=== PATIENT | male | born 1960 | race Caucasian/White ===

== ENCOUNTER 2022-10-06 17:37 | Inpatient (IN) | payer OTHER ==
--- NOTE | 2022-10-06 18:13 | ED ---
General Adult HPI - General Chief complaint: Weakness Stated complaint: cancer patient-body & headaches, nausea Time Seen by Provider: 10/06/22 17:55 Source: patient, RN notes reviewed, old records reviewed Mode of arrival: ambulatory Limitations: no limitations - History of Present Illness Initial comments: This is a 62-year-old male presents emergency Department complaining of feeling achy all over and feels as though is a little hot. Patient states she was recently diagnosed with lymphoma and had his first chemo treatment on Tuesday and another one on Tuesday. Patient denies any cough patient denies any abdominal pain patient denies nausea vomiting diarrhea. Patient states he did not get a COVID shot. Patient denies a headache patient denies any numbness or weakness. Patient denies lightheadedness or dizziness. - Related Data Allergies Allergy/AdvReac Type Severity Reaction Status Date / Time No Known Allergies Allergy Verified 10/06/22 17:53 Review of Systems ROS Statement: Those systems with pertinent positive or pertinent negative responses have been documented in the HPI. ROS Other: All systems not noted in ROS Statement are negative. Past Medical History Additional Past Medical History / Comment(s): WM lymphoma History of Any Multi-Drug Resistant Organisms: None Reported Past Surgical History: Appendectomy Past Psychological History: No Psychological Hx Reported Smoking Status: Light tobacco smoker Past Alcohol Use History: None Reported Past Drug Use History: Marijuana General Exam - General Exam Comments Initial Comments: GENERAL: Patient is well-developed and well-nourished. Patient is nontoxic and well- hydrated and is in mild distress. I took the patient's temperature and he had 101.9 ENT: Neck is soft and supple. No significant lymphadenopathy is noted. Oropharynx is clear. Moist mucous membranes. Neck has full range of motion without eliciting any pain. EYES: The sclera were anicteric and conjunctiva were pink and moist. Extraocular movements were intact and pupils were equal round and reactive to light. Eyelids were unremarkable. PULMONARY: Unlabored respirations. Good breath sounds bilaterally. No audible rales rhonchi or wheezing was noted. CARDIOVASCULAR: There is a regular rate and rhythm without any murmurs gallops or rubs. ABDOMEN: Soft and nontender with normal bowel sounds. No palpable organomegaly was noted. There is no palpable pulsatile mass. SKIN: Skin is clear with no lesions or rashes and otherwise unremarkable. NEUROLOGIC: Patient is alert and oriented x3. Cranial nerves II through XII are grossly intact. Motor and sensory are also intact. Normal speech, volume and content. Symmetrical smile. MUSCULOSKELETAL: Normal extremities with adequate strength and full range of motion. LYMPHATICS: No significant lymphadenopathy is noted PSYCHIATRIC: Normal psychiatric evaluation. Limitations: no limitations Course Vital Signs 10/06/22 10/06/22 17:49 19:51 Temperature 98.7 F Pulse Rate 127 H 110 H Respiratory 18 18 Rate Blood Pressure 157/74 122/78 O2 Sat by Pulse 97 96 Oximetry Medical Decision Making - Medical Decision Making I interpreted the EKG. It shows a sinus tachycardia at [address] interval 144 QRS is 97 Q-T intervals 390 QTC is 357 per patient's EKG shows no ST segment elevation or depression. - Lab Data Result diagrams: 10/06/22 19:00 10/06/22 19:00 Lab Results 10/06/22 10/06/22 10/06/22 Range/Units 18:44 18:44 19:00 WBC 10.3 (3.8-10.6) k/uL RBC 4.00 L (4.30-5.90) m/uL Hgb 10.7 L (13.0-17.5) gm/dL Hct 31.9 L (39.0-53.0) % MCV 79.6 L (80.0-100.0) fL MCH 26.8 (25.0-35.0) pg MCHC 33.7 (31.0-37.0) g/dL RDW 17.3 H (11.5-15.5) % Plt Count 358 (150-450) k/uL MPV 8.1 Neutrophils % (Manual) 76 % Band Neuts % (Manual) 1 % Lymphocytes % (Manual) 6 % Monocytes % (Manual) 13 % Eosinophils % (Manual) 5 % Metamyelocytes % 1 % Myelocytes % 1 % Neutrophils # (Manual) 7.90 H (1.3-7.7) k/uL Lymphocytes # (Manual) 0.62 L (1.0-4.8) k/uL Monocytes # (Manual) 1.34 H (0-1.0) k/uL Eosinophils # (Manual) 0.52 (0-0.7) k/uL Metamyelocytes # (Man) 0.10 H (0) k/uL Myelocytes # (Manual) 0.10 H (0) k/uL Nucleated RBCs 0 (0-0) /100 WBC Manual Slide Review Performed Anisocytosis Slight Microcytosis Slight PT (9.0-12.0) sec INR (<1.2) APTT (22.0-30.0) sec Sodium (137-145) mmol/L Potassium (3.5-5.1) mmol/L Chloride (98-107) mmol/L Carbon Dioxide (22-30) mmol/L Anion Gap mmol/L BUN (9-20) mg/dL Creatinine (0.66-1.25) mg/dL Est GFR (CKD-EPI)AfAm (>60 ml/min/1.73 sqM) Est GFR (CKD-EPI)NonAf (>60 ml/min/1.73 sqM) Glucose (74-99) mg/dL Plasma Lactic Acid Ron (0.7-2.0) mmol/L Calcium (8.4-10.2) mg/dL Total Bilirubin (0.2-1.3) mg/dL AST (17-59) U/L ALT (4-49) U/L Alkaline Phosphatase (38-126) U/L Total Protein (6.3-8.2) g/dL Albumin (3.5-5.0) g/dL Urine Color Urine Appearance (Clear) Urine pH (5.0-8.0) Ur Specific Warren (1.001-1.035) Urine Protein (Negative) Urine Glucose (UA) (Negative) Urine Ketones (Negative) Urine Blood (Negative) Urine Nitrite (Negative) Urine Bilirubin (Negative) Urine Urobilinogen (<2.0) mg/dL Ur Leukocyte Esterase (Negative) Urine RBC (0-5) /hpf Urine WBC (0-5) /hpf Ur Squamous Epith Cells (0-4) /hpf Urine Mucus (None) /hpf Coronavirus (PCR) Not Detected (Not Detectd) Influenza Type A RNA Not Detected (Not Detectd) Influenza Type B (PCR) Not Detected (Not Detectd) 10/06/22 10/06/22 10/06/22 Range/Units 19:00 19:00 19:00 WBC (3.8-10.6) k/uL RBC (4.30-5.90) m/uL Hgb (13.0-17.5) gm/dL Hct (39.0-53.0) % MCV (80.0-100.0) fL MCH (25.0-35.0) pg MCHC (31.0-37.0) g/dL RDW (11.5-15.5) % Plt Count (150-450) k/uL MPV Neutrophils % (Manual) % Band Neuts % (Manual) % Lymphocytes % (Manual) % Monocytes % (Manual) % Eosinophils % (Manual) % Metamyelocytes % % Myelocytes % % Neutrophils # (Manual) (1.3-7.7) k/uL Lymphocytes # (Manual) (1.0-4.8) k/uL Monocytes # (Manual) (0-1.0) k/uL Eosinophils # (Manual) (0-0.7) k/uL Metamyelocytes # (Man) (0) k/uL Myelocytes # (Manual) (0) k/uL Nucleated RBCs (0-0) /100 WBC Manual Slide Review Anisocytosis Microcytosis PT 11.7 (9.0-12.0) sec INR 1.1 (<1.2) APTT 30.0 (22.0-30.0) sec Sodium 116 L* (137-145) mmol/L Potassium 6.4 H* (3.5-5.1) mmol/L Chloride 83 L (98-107) mmol/L Carbon Dioxide 23 (22-30) mmol/L Anion Gap 10 mmol/L BUN 13 (9-20) mg/dL Creatinine 0.67 (0.66-1.25) mg/dL Est GFR (CKD-EPI)AfAm >90 (>60 ml/min/1.73 sqM) Est GFR (CKD-EPI)NonAf >90 (>60 ml/min/1.73 sqM) Glucose 178 H (74-99) mg/dL Plasma Lactic Acid Ron 2.2 H* (0.7-2.0) mmol/L Calcium 8.9 (8.4-10.2) mg/dL Total Bilirubin 0.8 (0.2-1.3) mg/dL AST 33 (17-59) U/L ALT 16 (4-49) U/L Alkaline Phosphatase 93 (38-126) U/L Total Protein 9.0 H (6.3-8.2) g/dL Albumin 4.0 (3.5-5.0) g/dL Urine Color Urine Appearance (Clear) Urine pH (5.0-8.0) Ur Specific Warren (1.001-1.035) Urine Protein (Negative) Urine Glucose (UA) (Negative) Urine Ketones (Negative) Urine Blood (Negative) Urine Nitrite (Negative) Urine Bilirubin (Negative) Urine Urobilinogen (<2.0) mg/dL Ur Leukocyte Esterase (Negative) Urine RBC (0-5) /hpf Urine WBC (0-5) /hpf Ur Squamous Epith Cells (0-4) /hpf Urine Mucus (None) /hpf Coronavirus (PCR) (Not Detectd) Influenza Type A RNA (Not Detectd) Influenza Type B (PCR) (Not Detectd) 10/06/22 Range/Units 19:28 WBC (3.8-10.6) k/uL RBC (4.30-5.90) m/uL Hgb (13.0-17.5) gm/dL Hct (39.0-53.0) % MCV (80.0-100.0) fL MCH (25.0-35.0) pg MCHC (31.0-37.0) g/dL RDW (11.5-15.5) % Plt Count (150-450) k/uL MPV Neutrophils % (Manual) % Band Neuts % (Manual) % Lymphocytes % (Manual) % Monocytes % (Manual) % Eosinophils % (Manual) % Metamyelocytes % % Myelocytes % % Neutrophils # (Manual) (1.3-7.7) k/uL Lymphocytes # (Manual) (1.0-4.8) k/uL Monocytes # (Manual) (0-1.0) k/uL Eosinophils # (Manual) (0-0.7) k/uL Metamyelocytes # (Man) (0) k/uL Myelocytes # (Manual) (0) k/uL Nucleated RBCs (0-0) /100 WBC Manual Slide Review Anisocytosis Microcytosis PT (9.0-12.0) sec INR (<1.2) APTT (22.0-30.0) sec Sodium (137-145) mmol/L Potassium (3.5-5.1) mmol/L Chloride (98-107) mmol/L Carbon Dioxide (22-30) mmol/L Anion Gap mmol/L BUN (9-20) mg/dL Creatinine (0.66-1.25) mg/dL Est GFR (CKD-EPI)AfAm (>60 ml/min/1.73 sqM) Est GFR (CKD-EPI)NonAf (>60 ml/min/1.73 sqM) Glucose (74-99) mg/dL Plasma Lactic Acid Ron (0.7-2.0) mmol/L Calcium (8.4-10.2) mg/dL Total Bilirubin (0.2-1.3) mg/dL AST (17-59) U/L ALT (4-49) U/L Alkaline Phosphatase (38-126) U/L Total Protein (6.3-8.2) g/dL Albumin (3.5-5.0) g/dL Urine Color Light Yellow Urine Appearance Clear (Clear) Urine pH 7.5 (5.0-8.0) Ur Specific Warren 1.017 (1.001-1.035) Urine Protein 1+ H (Negative) Urine Glucose (UA) Negative (Negative) Urine Ketones Negative (Negative) Urine Blood Negative (Negative) Urine Nitrite Negative (Negative) Urine Bilirubin Negative (Negative) Urine Urobilinogen <2.0 (<2.0) mg/dL Ur Leukocyte Esterase Negative (Negative) Urine RBC 2 (0-5) /hpf Urine WBC 1 (0-5) /hpf Ur Squamous Epith Cells <1 (0-4) /hpf Urine Mucus Rare H (None) /hpf Coronavirus (PCR) (Not Detectd) Influenza Type A RNA (Not Detectd) Influenza Type B (PCR) (Not Detectd) Disposition Clinical Impression: Hypokalemia, Hyperkalemia, Lactic acidosis, Fever, unknown origin Disposition: ADMITTED IP TO THIS HOSP Referrals: Rodo Larson MD [Primary Care Provider] - 1-2 days Time of Disposition: 20:39
[2022-10-06] MEDS ORDERED: ACETAMINOPHEN TAB 325 MG TAB PO STA (18:24)
[2022-10-06] MEDS ORDERED: IBUPROFEN 600 MG TAB PO STA (18:24)
[2022-10-06] MEDS ORDERED: ONDANSETRON 4 MG/2 ML VIAL IVP STA (18:25)
[2022-10-06] MEDS: SODIUM CHLORIDE 0.9% 500 ML 500 ML IV SCH ×2 (18:50→20:09)
--- NOTE | 2022-10-06 19:23 | XR ---
EXAMINATION TYPE: XR chest 2V DATE OF EXAM: 10/06/2022 COMPARISON: NONE HISTORY: Fever TECHNIQUE: 2 view FINDINGS: Heart is normal. Lungs are clear. Diaphragm is normal. Bony thorax is intact. IMPRESSION: Normal chest.
[2022-10-06 19:28] LABS: Anisocytosis Slight; HCT 31.9 % (39.0-53.0); HGB 10.7 gm/dL (13.0-17.5); MCH 26.8 pg (25.0-35.0); MCHC 33.7 g/dL (31.0-37.0); MCV 79.6 fL (80.0-100.0); Mean Platelet Volume 8.1; Microcytosis Slight; Platelet Count 358 k/uL (150-450); RDW 17.3 % (11.5-15.5); WBC 10.3 k/uL (3.8-10.6)
[2022-10-06 19:35] LABS: INR 1.1 (<1.2); Prothrombin Time 11.7 sec (9.0-12.0)
[2022-10-06 19:45] LABS: ALT 16 U/L (4-49); AST 33 U/L (17-59); African American GFR (CKD) >90 (>60 ml/min/1.73 sqM); Alkaline Phosphatase 93 U/L (38-126); Anion Gap 10 mmol/L; Blood Urea Nitrogen 13 mg/dL (9-20); Calcium 8.9 mg/dL (8.4-10.2); Carbon Dioxide 23 mmol/L (22-30); Chloride 83 mmol/L (98-107); Glucose 178 mg/dL (74-99); Non-African American GFR(CKD) >90 (>60 ml/min/1.73 sqM); Total Bilirubin 0.8 mg/dL (0.2-1.3)
[2022-10-06 20:03] LABS: Potassium 6.4 mmol/L (3.5-5.1); Sodium 116 mmol/L (137-145)
[2022-10-06 20:08] LABS: Band Neutrophils % 1 %; Eosinophils # (M) 0.52 k/uL (0-0.7); Lymphocytes # (M) 0.62 k/uL (1.0-4.8); Metamyelocytes % 1 %; Monocytes # (M) 1.34 k/uL (0-1.0); Myelocytes % 1 %; Neutrophils % (M) 76 %; Nucleated Red Blood Cells 0 /100 WBC (0-0); Total Cells Counted 200
[2022-10-06] MEDS ORDERED: SODIUM CHLORIDE 0.9% 500 ML 500 ML IV ONE (20:15)
[2022-10-06] MEDS ORDERED: CALCIUM CHLORIDE 100 MG/ML 10 ML SYRINGE IVP STA (20:17)
[2022-10-06] MEDS ORDERED: INSULIN REGULAR 100 UNIT/ML VIAL (IV) IV ONE (20:18)
[2022-10-06] MEDS ORDERED: SODIUM BICARB 8.4% 50 ML SYR (1 MEQ/ML) IV STA (20:18)
[2022-10-06] MEDS ORDERED: DEXTROSE 50% SYRINGE 50 ML IVP STA (20:18)
[2022-10-06 20:28] LABS: Appearance,Urine Clear (Clear); Bilirubin,Urine Negative (Negative); Blood,Urine Negative (Negative); Color,Urine Light Yellow; Glucose,Urine (UA) Negative (Negative); Ketones,Urine Negative (Negative); Leukocyte Esterase,Urine Negative (Negative); Mucus,Urine Rare /hpf; Nitrite,Urine Negative (Negative); PH, Urine 7.5 (5.0-8.0); Protein,Urine 1+ (Negative); RBC,Urine 2 /hpf (0-5); Specific Gravity,Urine 1.017 (1.001-1.035); Squamous Epithelial Cell,Urine <1 /hpf (0-4); Urobilinogen,Urine <2.0 mg/dL (<2.0); WBC,Urine 1 /hpf (0-5)
[2022-10-06] MEDS ORDERED: CEFEPIME 2 GM in SODIUM CHLORIDE 0.9% 100 ML IVPB STA (20:35)
[2022-10-06] MEDS ORDERED: SODIUM CHLORIDE 0.9% 1,000 ML IV ONE (21:05)
[2022-10-06] MEDS ORDERED: SODIUM POLYSTYRENE SULFONATE 15 GM/60 ML BOTTLE PO STA (21:06)
[2022-10-06 21:31] LABS: African American GFR (CKD) >90 (>60 ml/min/1.73 sqM); Anion Gap 8 mmol/L; Blood Urea Nitrogen 13 mg/dL (9-20); Carbon Dioxide 21 mmol/L (22-30); Chloride 89 mmol/L (98-107); Glucose 141 mg/dL (74-99); Non-African American GFR(CKD) >90 (>60 ml/min/1.73 sqM); Potassium 5.2 mmol/L (3.5-5.1)
[2022-10-06 21:36] LABS: Sodium 118 mmol/L (137-145)
[2022-10-07] MEDS ORDERED: NICOTINE 21MG/24HR PATCH TRANSDERM STA (00:38)
[2022-10-07] MEDS: ACETAMINOPHEN TAB 325 MG TAB PO PRN ×3 (03:39→21:01)
[2022-10-07 05:55] LABS: Glucose,Whole Blood 120 mg/dL (70-110)
[2022-10-07 07:39] LABS: Anisocytosis Slight; HCT 30.4 % (39.0-53.0); Hypochromasia Slight; MCH 26.7 pg (25.0-35.0); MCV 80.9 fL (80.0-100.0); Mean Platelet Volume 8.2; Microcytosis Slight; Platelet Count 339 k/uL (150-450); Poikilocytosis Slight; RBC 3.76 m/uL (4.30-5.90); RDW 17.6 % (11.5-15.5); WBC 9.1 k/uL (3.8-10.6)
[2022-10-07 07:47] LABS: African American GFR (CKD) >90 (>60 ml/min/1.73 sqM); Anion Gap 6 mmol/L; Blood Urea Nitrogen 12 mg/dL (9-20); Carbon Dioxide 24 mmol/L (22-30); Chloride 94 mmol/L (98-107); Glucose 113 mg/dL (74-99); Non-African American GFR(CKD) >90 (>60 ml/min/1.73 sqM); Potassium 4.6 mmol/L (3.5-5.1); Sodium 124 mmol/L (137-145)
[2022-10-07 07:49] LABS: African American GFR (CKD) >90 (>60 ml/min/1.73 sqM); Anion Gap 6 mmol/L; Blood Urea Nitrogen 13 mg/dL (9-20); Calcium 8.8 mg/dL (8.4-10.2); Carbon Dioxide 24 mmol/L (22-30); Chloride 94 mmol/L (98-107); Glucose 114 mg/dL (74-99); Non-African American GFR(CKD) >90 (>60 ml/min/1.73 sqM); Potassium 4.6 mmol/L (3.5-5.1); Sodium 124 mmol/L (137-145)
[2022-10-07] MEDS ORDERED: SENNOSIDES 8.6 MG TAB PO PRN (08:07)
[2022-10-07] MEDS ORDERED: ONDANSETRON ODT 4 MG TAB PO PRN (08:07)
[2022-10-07] MEDS ORDERED: ALPRAZolam 0.25 MG TAB PO PRN (08:07)
[2022-10-07] MEDS ORDERED: IBUPROFEN 400 MG TAB PO PRN (08:08)
--- NOTE | 2022-10-07 08:22 | P.HPIM ---
History of Present Illness H&P Date: 10/07/22 Chief Complaint: fever There is a 62-year-old male who presented to the ER with complaints of fever for the last 3 days. He has a history of lymphoma and was recently hospitalized for hyponatremia at another facility. Patient reports extreme fatigue over the last few days. Last chemo treatment was on 09/29. He denies any cough or congestion. Food intake has been moderate, drinking 2 bottles of body armor and 2 bottles of water a day. Sodium on admission was 118, today is 124. Calcium on admission was 5.2 today is 4.6. Patient is alert and oriented sitting up in bed this morning eating breakfast. Review of Systems Constitutional: Reports fatigue, Reports fever Ears, nose, mouth and throat: Reports headache Cardiovascular: Denies chest pain, Denies palpitations Respiratory: Denies congestion, Denies cough, Denies dyspnea Gastrointestinal: Denies abdominal pain, Denies change in bowel habits Neurological: Reports headaches, Denies change in mentation Past Medical History Additional Past Medical History / Comment(s): WM lymphoma, shingles History of Any Multi-Drug Resistant Organisms: None Reported Past Surgical History: Appendectomy Past Anesthesia/Blood Transfusion Reactions: No Reported Reaction Past Psychological History: No Psychological Hx Reported Smoking Status: Light tobacco smoker Past Alcohol Use History: None Reported Past Drug Use History: Marijuana - Past Family History Father Family Medical History: Cancer, Prostate Disorder Additional Family Medical History / Comment(s): prostate cancer Mother Family Medical History: Cancer Additional Family Medical History / Comment(s): lung cancer to the brain Brother(s) Family Medical History: Cancer Medications and Allergies Home Medications Medication Instructions Recorded Confirmed Type ALPRAZolam [Xanax] 0.25 mg PO BID PRN 10/06/22 10/06/22 History Acetaminophen [Tylenol Extra 500 - 1,000 mg PO Q6H PRN 10/06/22 10/06/22 History Strength] Ascorbic Acid [Vitamin C] 500 mg PO DAILY 10/06/22 10/06/22 History Cholecalciferol [Vitamin D3 (25 25 mcg PO DAILY 10/06/22 10/06/22 History Mcg = 1000 Iu)] Ferrous Sulfate [Feosol] 325 mg PO DAILY 10/06/22 10/06/22 History Mirtazapine [Remeron] 30 mg PO HS 10/06/22 10/06/22 History Nicotine 21Mg/24Hr Patch [Habitrol] 1 patch TRANSDERM DAILY PRN 10/06/22 10/06/22 History Ondansetron Odt [Zofran Odt] 4 mg PO Q4H PRN 10/06/22 10/06/22 History Pantoprazole Sodium [Protonix] 40 mg PO DAILY 10/06/22 10/06/22 History Sennosides [Senokot] 8.6 mg PO HS PRN 10/06/22 10/06/22 History Zinc Gluconate [Zinc] 50 mg PO DAILY 10/06/22 10/06/22 History allopurinoL [Zyloprim] 200 mg PO DAILY 10/06/22 10/06/22 History Allergies Allergy/AdvReac Type Severity Reaction Status Date / Time No Known Allergies Allergy Verified 10/06/22 17:53 Physical Exam Vitals: Vital Signs Temp Pulse Pulse Resp BP BP Pulse Ox 10/07/22 07:58 96 10/07/22 03:44 97.8 F 89 16 129/69 98 10/07/22 00:00 98.2 F 88 18 106/64 97 10/06/22 22:05 104/52 10/06/22 21:58 98.0 F 102 H 18 99 10/06/22 19:51 110 H 18 122/78 96 10/06/22 17:49 98.7 F 127 H 18 157/74 97 Intake and Output 10/06/22 10/07/22 10/07/22 22:59 06:59 14:59 Intake Total 240 Balance 240 Intake: Oral 240 Other: Voiding Method Toilet # Voids 1 Weight 64.864 kg 64.864 kg - Constitutional General appearance: cooperative, no no acute distress - EENT Eyes: EOMI, PERRLA - Neck Neck: normal ROM, no rigidity - Respiratory Respiratory: bilateral: CTA - Cardiovascular Rhythm: regular Heart sounds: normal: S1, S2 - Gastrointestinal General gastrointestinal: normal bowel sounds, soft - Integumentary Integumentary: normal, normal turgor - Musculoskeletal Musculoskeletal: gait normal - Psychiatric Psychiatric: A&O x's 3, appropriate affect, intact judgment & insight Results CBC & Chem 7: 10/07/22 06:49 10/07/22 06:49 Labs: Abnormal Lab Results - Last 24 Hours (Table) 10/06/22 10/06/22 10/06/22 Range/Units 19:00 19:00 19:00 RBC 4.00 L (4.30-5.90) m/uL Hgb 10.7 L (13.0-17.5) gm/dL Hct 31.9 L (39.0-53.0) % MCV 79.6 L (80.0-100.0) fL RDW 17.3 H (11.5-15.5) % Neutrophils # (Manual) 7.90 H (1.3-7.7) k/uL Lymphocytes # (Manual) 0.62 L (1.0-4.8) k/uL Monocytes # (Manual) 1.34 H (0-1.0) k/uL Metamyelocytes # (Man) 0.10 H (0) k/uL Myelocytes # (Manual) 0.10 H (0) k/uL Sodium 116 L* (137-145) mmol/L Potassium 6.4 H* (3.5-5.1) mmol/L Chloride 83 L (98-107) mmol/L Carbon Dioxide (22-30) mmol/L Glucose 178 H (74-99) mg/dL POC Glucose (mg/dL) (70-110) mg/dL Plasma Lactic Acid Ron 2.2 H* (0.7-2.0) mmol/L Calcium (8.4-10.2) mg/dL Total Protein 9.0 H (6.3-8.2) g/dL Urine Protein (Negative) Urine Mucus (None) /hpf 10/06/22 10/06/22 10/07/22 Range/Units 19:28 20:46 05:53 RBC (4.30-5.90) m/uL Hgb (13.0-17.5) gm/dL Hct (39.0-53.0) % MCV (80.0-100.0) fL RDW (11.5-15.5) % Neutrophils # (Manual) (1.3-7.7) k/uL Lymphocytes # (Manual) (1.0-4.8) k/uL Monocytes # (Manual) (0-1.0) k/uL Metamyelocytes # (Man) (0) k/uL Myelocytes # (Manual) (0) k/uL Sodium 118 L* (137-145) mmol/L Potassium 5.2 H (3.5-5.1) mmol/L Chloride 89 L (98-107) mmol/L Carbon Dioxide 21 L (22-30) mmol/L Glucose 141 H (74-99) mg/dL POC Glucose (mg/dL) 120 H (70-110) mg/dL Plasma Lactic Acid Ron (0.7-2.0) mmol/L Calcium 8.0 L (8.4-10.2) mg/dL Total Protein (6.3-8.2) g/dL Urine Protein 1+ H (Negative) Urine Mucus Rare H (None) /hpf 10/07/22 10/07/22 10/07/22 Range/Units 06:49 06:49 06:49 RBC 3.76 L (4.30-5.90) m/uL Hgb 10.0 L (13.0-17.5) gm/dL Hct 30.4 L (39.0-53.0) % MCV (80.0-100.0) fL RDW 17.6 H (11.5-15.5) % Neutrophils # (Manual) (1.3-7.7) k/uL Lymphocytes # (Manual) (1.0-4.8) k/uL Monocytes # (Manual) (0-1.0) k/uL Metamyelocytes # (Man) (0) k/uL Myelocytes # (Manual) (0) k/uL Sodium 124 L 124 L (137-145) mmol/L Potassium (3.5-5.1) mmol/L Chloride 94 L 94 L (98-107) mmol/L Carbon Dioxide (22-30) mmol/L Glucose 113 H 114 H (74-99) mg/dL POC Glucose (mg/dL) (70-110) mg/dL Plasma Lactic Acid Ron (0.7-2.0) mmol/L Calcium (8.4-10.2) mg/dL Total Protein (6.3-8.2) g/dL Urine Protein (Negative) Urine Mucus (None) /hpf Thrombosis Risk Factor Assmnt - Choose All That Apply Each Factor Represents 1 point: Age 41-60 years Other Risk Factors: No Other congenital or acquired thrombophilia - If yes, enter type in comment: No Thrombosis Risk Factor Assessment Total Risk Factor Score: 1 Thrombosis Risk Factor Assessment Level: Low Risk Assessment and Plan (1) Hyponatremia Current Visit: Yes Status: Acute Code(s): E87.1 - HYPO-OSMOLALITY AND HYPONATREMIA SNOMED Code(s): 90647512 (2) Fever, unknown origin Current Visit: Yes Status: Acute Code(s): R50.9 - FEVER, UNSPECIFIED SNOMED Code(s): 0783626 (3) Lymphoma Current Visit: Yes Status: Acute Code(s): C85.90 - NON-HODGKIN LYMPHOMA, UNSPECIFIED, UNSPECIFIED SITE SNOMED Code(s): 252790838 (4) Fatigue Current Visit: Yes Status: Acute Code(s): R53.83 - OTHER FATIGUE SNOMED Code(s): 84596976 (5) Hyperkalemia Current Visit: Yes Status: Acute Code(s): E87.5 - HYPERKALEMIA SNOMED Code(s): 56453571 Plan: Consults oncology and nephrology. Will order CMP for tomorrow. Home medications reconciled. Will order Motrin as needed for fever. Tramadol added for pain. Continue to monitor closely. Patient seen and evaluated by nurse practitioner, physician in agreement with plan
[2022-10-07] MEDS: ZINC SULFATE 220 MG CAP PO SCH (08:33)
[2022-10-07] MEDS: FERROUS SULFATE 325 MG TAB PO SCH (08:33)
[2022-10-07] MEDS: ASCORBIC ACID 500 MG TAB PO SCH (08:33)
[2022-10-07] MEDS: CHOLECALCIFEROL 25 MCG (1000 IU) TABLET PO SCH (08:34)
[2022-10-07] MEDS: allopurinoL 100 MG TAB PO SCH (08:34)
[2022-10-07] MEDS: traMADol 50 MG TAB PO SCH ×4 (08:34→23:16)
[2022-10-07] MEDS: CEFEPIME 2 GM in SODIUM CHLORIDE 0.9% 100 ML IVPB SCH ×3 (08:35→23:12)
[2022-10-07] MEDS ORDERED: DEXTROSE 5% IN WATER 1,000 ML IV ONE (08:51)
--- NOTE | 2022-10-07 09:00 | P.NPCON ---
History of Present Illness - Reason for Consult hyponatremia - History of Present Illness Reason for consultation: Hyponatremia and hyperkalemia History of present illness: Patient is a 62-year-old male seen in renal consultation for hyponatremia. Patient's sodium level on admission 10/16/2022 at 7 PM was 116. It is up to 124 as of this morning. Patient received 1 L bolus of normal saline and is curr ently receiving normal saline at 75 mL an hour. Patient states he was recently diagnosed with non-Hodgkin's lymphoma and was started on chemotherapy last week. He underwent chemotherapy Tuesday and Tuesday. Patient states last couple of days as oral intake has decreased but denies any significant vomiting or diarrhea. He denies excessive fluid intake. States he drinks sports drinks. He denies use of nonsteroidals. Patient states his sodium has been low in the past as well and was given sodium chloride tabs to take which she hasn't been taking. He denies use of diuretics. Potassium was also high at 6.4 and is down to 4.6 this morning. Hyperkalemia was medically treated with IV insulin, IV bicarb as well as Kayexalate. Blood sugars are stable. Bicarb level XXIV this morning. TSH normal. Vital signs are stable. General: Awake. No acute distress. HEENT: Head exam is unremarkable. LUNGS: Breath sounds decreased. HEART: Rate and Rhythm are regular. ABDOMEN: Soft, no distention. EXTREMITITES: No edema. Past Medical History Past Medical History: Cancer Additional Past Medical History / Comment(s): WM lymphoma, shingles History of Any Multi-Drug Resistant Organisms: None Reported Past Surgical History: Appendectomy Past Anesthesia/Blood Transfusion Reactions: No Reported Reaction Past Psychological History: No Psychological Hx Reported Smoking Status: Light tobacco smoker Past Alcohol Use History: None Reported Past Drug Use History: Marijuana - Past Family History Father Family Medical History: Cancer, Prostate Disorder Additional Family Medical History / Comment(s): prostate cancer Mother Family Medical History: Cancer Additional Family Medical History / Comment(s): lung cancer to the brain Brother(s) Family Medical History: Cancer Medications and Allergies Home Medications Medication Instructions Recorded Confirmed Type ALPRAZolam [Xanax] 0.25 mg PO BID PRN 10/06/22 10/06/22 History Acetaminophen [Tylenol Extra 500 - 1,000 mg PO Q6H PRN 10/06/22 10/06/22 History Strength] Ascorbic Acid [Vitamin C] 500 mg PO DAILY 10/06/22 10/06/22 History Cholecalciferol [Vitamin D3 (25 25 mcg PO DAILY 10/06/22 10/06/22 History Mcg = 1000 Iu)] Ferrous Sulfate [Feosol] 325 mg PO DAILY 10/06/22 10/06/22 History Mirtazapine [Remeron] 30 mg PO HS 10/06/22 10/06/22 History Nicotine 21Mg/24Hr Patch [Habitrol] 1 patch TRANSDERM DAILY PRN 10/06/22 10/06/22 History Ondansetron Odt [Zofran Odt] 4 mg PO Q4H PRN 10/06/22 10/06/22 History Pantoprazole Sodium [Protonix] 40 mg PO DAILY 10/06/22 10/06/22 History Sennosides [Senokot] 8.6 mg PO HS PRN 10/06/22 10/06/22 History Zinc Gluconate [Zinc] 50 mg PO DAILY 10/06/22 10/06/22 History allopurinoL [Zyloprim] 200 mg PO DAILY 10/06/22 10/06/22 History Allergies Allergy/AdvReac Type Severity Reaction Status Date / Time No Known Allergies Allergy Verified 10/06/22 17:53 Physical Exam Vitals: Vital Signs Temp Pulse Pulse Pulse Resp BP BP 10/07/22 08:30 96.8 F L 111 H 16 121/59 10/07/22 07:58 10/07/22 03:44 97.8 F 89 16 129/69 10/07/22 00:00 98.2 F 88 18 106/64 10/06/22 22:05 104/52 10/06/22 21:58 98.0 F 102 H 18 10/06/22 19:51 110 H 18 122/78 10/06/22 17:49 98.7 F 127 H 18 157/74 Pulse Ox 10/07/22 08:30 98 10/07/22 07:58 96 10/07/22 03:44 98 10/07/22 00:00 97 10/06/22 22:05 10/06/22 21:58 99 10/06/22 19:51 96 10/06/22 17:49 97 Intake and Output 10/06/22 10/07/22 10/07/22 22:59 06:59 14:59 Intake Total 240 Balance 240 Intake: Oral 240 Other: Voiding Method Toilet # Voids 1 Weight 64.864 kg 64.864 kg Results - Lab Results Most recent lab results Calcium 8.8 mg/dL (8.4-10.2) 10/07/22 06:49 Calcium 9.0 mg/dL (8.4-10.2) 10/07/22 06:49 10/07/22 06:49 10/07/22 06:49 Assessment and Plan Plan: Assessment: 1. Hypovolemic hyponatremia with component of poor solute intake and underlying SIADH from malignancy. Sodium level was 116 on admission and is 124 this morning. TSH normal. 2. Hyperkalemia secondary to hyperglycemia and acidosis. Improved with medical management. 3. Non-Hodgkin's lymphoma maintained on chemotherapy outpatient. Plan: Stop normal saline. Start D5W at 75 mL an hour to slow correction of hyponatremia. Repeat sodium level in 2 hours. Check serum and urine osmolality and urine sodium level. Check cortisol level. Encouraged oral intake, especially protein. Thank you for the consultation. I will continue to follow the patient with you during his hospital stay.
[2022-10-07 12:03] LABS: Glucose,Whole Blood 114 mg/dL (70-110)
[2022-10-07] MEDS: PANTOPRAZOLE 40 MG TABLET PO SCH (13:16)
[2022-10-07 16:35] LABS: Glucose,Whole Blood 110 mg/dL (70-110)
[2022-10-07] MEDS ORDERED: PROCHLORPERAZINE 10 MG TAB PO PRN (19:03)
[2022-10-07] MEDS: diphenhydrAMINE 25 MG CAP PO SCH ×2 (19:06→21:01)
[2022-10-07] MEDS: predniSONE 50 MG TAB PO SCH (19:06)
--- NOTE | 2022-10-07 19:13 | P.CONS ---
History of Present Illness - Reason for Consult Consult date: 10/07/22 fever NOS, lymphoma Requesting physician: Oz Paulino - Chief Complaint weakness, fever - History of Present Illness Mister Cisneros is a pleasant male patient of Dr. Wesley, initially seen in consult [facility] 07/27/22. Resented with complaints of pain in the bilateral lower e xtremities, progressive over the last month. Evaluation revealed sodium 122, hemoglobin 8.3 with a low MCV. Exam revealed palpable lymph node in the right supraclavicular area. There was a family history of lymphoma. X-rays of the lumbar spine, hips revealed compression fracture at L5. CT CAP showed a 1.9 cm pretracheal lymph node, as well as multiple enlarged periaortic lymph node measuring up to 3 cm. There is some encasement of the aorta. Multiple bilateral palpable inguinal nodes, up to 1.5 cm were also seen. CT of the soft tissue of the neck showed mediastinal, as well as anterior and posterior triangle cervical adenopathy, with submandibular adenopathy. Excisional biopsy of the right lower cervical lymph node and subsequently discharged. He has had additional admissions as for weakness, low sodium, prolonged insomnia , anxiety, as well as mental status changes. The mental status changes actually resolved with treatment of anxiety and insomnia. 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 Flow cytometry showed similar results. Bone scan, and MRI of the brain were negative. FISH study showed CCN D1/11 q, but no evidence of CCN D1/IGH , IGH/BCL-2, or MART 1 translocations. 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 As this was suspicious for mantle cell lymphoma, but not definitive, given the absence of specific translocations, pathology was sent to [facility] for consultation. He was started on pulse Decadron 40 mg, 4 days on and 4 days off. He had 4 courses of the same. He was seen for his first office visit on 09/09/22. He received his first dose of treatment last week. Patient states that within a few days after treatment he was beginning to experience dizziness. He had a fall 1, his bones hurt for one day and then pain went away. He was forcing himself to eat. He noted a loss of appetite, energy, sleeping a lot. This progressed. 2 days ago he started having nausea, "sick feeling", he didn't take any of his meds. Symptoms persisted and progressed, his face turned red, he became itchy and noted a rash over his body. That's when he decided to come to the emergency department. Reported fever of 101.9 Fahrenheit. No fever today. Patient feels a little bit better on admission. Less dizzy. He is definitely feeling anxious. Review of Systems 10 point ROS is neg except as stated in HPI Past Medical History Past Medical History: Cancer Additional Past Medical History / Comment(s): WM lymphoma, shingles History of Any Multi-Drug Resistant Organisms: None Reported Past Surgical History: Appendectomy Past Anesthesia/Blood Transfusion Reactions: No Reported Reaction Past Psychological History: No Psychological Hx Reported Smoking Status: Light tobacco smoker Past Alcohol Use History: None Reported Past Drug Use History: Marijuana - Past Family History Father Family Medical History: Cancer, Prostate Disorder Additional Family Medical History / Comment(s): prostate cancer Mother Family Medical History: Cancer Additional Family Medical History / Comment(s): lung cancer to the brain Brother(s) Family Medical History: Cancer Medications and Allergies Home Medications Medication Instructions Recorded Confirmed Type ALPRAZolam [Xanax] 0.25 mg PO BID PRN 10/06/22 10/06/22 History Acetaminophen [Tylenol Extra 500 - 1,000 mg PO Q6H PRN 10/06/22 10/06/22 History Strength] Ascorbic Acid [Vitamin C] 500 mg PO DAILY 10/06/22 10/06/22 History Cholecalciferol [Vitamin D3 (25 25 mcg PO DAILY 10/06/22 10/06/22 History Mcg = 1000 Iu)] Ferrous Sulfate [Feosol] 325 mg PO DAILY 10/06/22 10/06/22 History Mirtazapine [Remeron] 30 mg PO HS 10/06/22 10/06/22 History Nicotine 21Mg/24Hr Patch [Habitrol] 1 patch TRANSDERM DAILY PRN 10/06/22 10/06/22 History Ondansetron Odt [Zofran Odt] 4 mg PO Q4H PRN 10/06/22 10/06/22 History Pantoprazole Sodium [Protonix] 40 mg PO DAILY 10/06/22 10/06/22 History Sennosides [Senokot] 8.6 mg PO HS PRN 10/06/22 10/06/22 History Zinc Gluconate [Zinc] 50 mg PO DAILY 10/06/22 10/06/22 History allopurinoL [Zyloprim] 200 mg PO DAILY 10/06/22 10/06/22 History Allergies Allergy/AdvReac Type Severity Reaction Status Date / Time No Known Allergies Allergy Verified 10/06/22 17:53 Physical Exam Vitals: Vital Signs Temp Pulse Pulse Resp BP BP Pulse Ox 10/07/22 07:58 96 10/07/22 03:44 97.8 F 89 16 129/69 98 10/07/22 00:00 98.2 F 88 18 106/64 97 10/06/22 22:05 104/52 10/06/22 21:58 98.0 F 102 H 18 99 10/06/22 19:51 110 H 18 122/78 96 10/06/22 17:49 98.7 F 127 H 18 157/74 97 Intake and Output 10/06/22 10/07/22 10/07/22 22:59 06:59 14:59 Intake Total 240 Balance 240 Intake: Oral 240 Other: Voiding Method Toilet # Voids 1 Weight 64.864 kg 64.864 kg - Constitutional General appearance: average body habitus, cooperative, no acute distress - EENT Eyes: anicteric sclerae, EOMI ENT: hearing grossly normal, normal oropharynx - Neck Neck: lymphadenopathy (Shoddy bilateral supraclavicular adenopathy-nodes are smaller more mobile, softer) - Respiratory Respiratory: bilateral: CTA - Cardiovascular Rhythm: regular Heart sounds: normal: S1, S2 Abnormal Heart Sounds: no systolic murmur, no diastolic murmur, no rub, no S3 Gallop, no S4 Gallop, no click, no other leg Peripheral Edema: bilateral: None - Gastrointestinal General gastrointestinal: no absent bowel sounds, no decreased bowel sounds, no distended, no hepatomegaly, no hyperactive bowel sounds, normal bowel sounds, no organomegaly, no rigid, no scaphoid, soft, no splenomegaly, no tenderness, no umbilical hernia, no ventral hernia - Integumentary Integumentary: rash - Neurologic Neurologic: CNII-XII intact - Musculoskeletal Musculoskeletal: strength equal bilaterally - Psychiatric Psychiatric: A&O x's 3, appropriate affect, intact judgment & insight Results CBC & Chem 7: 10/07/22 06:49 10/07/22 15:11 Labs: Abnormal Lab Results - Last 24 Hours (Table) 10/06/22 10/06/22 10/06/22 Range/Units 19:00 19:00 19:00 RBC 4.00 L (4.30-5.90) m/uL Hgb 10.7 L (13.0-17.5) gm/dL Hct 31.9 L (39.0-53.0) % MCV 79.6 L (80.0-100.0) fL RDW 17.3 H (11.5-15.5) % Neutrophils # (Manual) 7.90 H (1.3-7.7) k/uL Lymphocytes # (Manual) 0.62 L (1.0-4.8) k/uL Monocytes # (Manual) 1.34 H (0-1.0) k/uL Metamyelocytes # (Man) 0.10 H (0) k/uL Myelocytes # (Manual) 0.10 H (0) k/uL Sodium 116 L* (137-145) mmol/L Potassium 6.4 H* (3.5-5.1) mmol/L Chloride 83 L (98-107) mmol/L Carbon Dioxide (22-30) mmol/L Glucose 178 H (74-99) mg/dL POC Glucose (mg/dL) (70-110) mg/dL Plasma Lactic Acid Ron 2.2 H* (0.7-2.0) mmol/L Calcium (8.4-10.2) mg/dL Total Protein 9.0 H (6.3-8.2) g/dL Urine Protein (Negative) Urine Mucus (None) /hpf 10/06/22 10/06/22 10/07/22 Range/Units 19:28 20:46 05:53 RBC (4.30-5.90) m/uL Hgb (13.0-17.5) gm/dL Hct (39.0-53.0) % MCV (80.0-100.0) fL RDW (11.5-15.5) % Neutrophils # (Manual) (1.3-7.7) k/uL Lymphocytes # (Manual) (1.0-4.8) k/uL Monocytes # (Manual) (0-1.0) k/uL Metamyelocytes # (Man) (0) k/uL Myelocytes # (Manual) (0) k/uL Sodium 118 L* (137-145) mmol/L Potassium 5.2 H (3.5-5.1) mmol/L Chloride 89 L (98-107) mmol/L Carbon Dioxide 21 L (22-30) mmol/L Glucose 141 H (74-99) mg/dL POC Glucose (mg/dL) 120 H (70-110) mg/dL Plasma Lactic Acid Ron (0.7-2.0) mmol/L Calcium 8.0 L (8.4-10.2) mg/dL Total Protein (6.3-8.2) g/dL Urine Protein 1+ H (Negative) Urine Mucus Rare H (None) /hpf 10/07/22 10/07/22 10/07/22 Range/Units 06:49 06:49 06:49 RBC 3.76 L (4.30-5.90) m/uL Hgb 10.0 L (13.0-17.5) gm/dL Hct 30.4 L (39.0-53.0) % MCV (80.0-100.0) fL RDW 17.6 H (11.5-15.5) % Neutrophils # (Manual) (1.3-7.7) k/uL Lymphocytes # (Manual) (1.0-4.8) k/uL Monocytes # (Manual) (0-1.0) k/uL Metamyelocytes # (Man) (0) k/uL Myelocytes # (Manual) (0) k/uL Sodium 124 L 124 L (137-145) mmol/L Potassium (3.5-5.1) mmol/L Chloride 94 L 94 L (98-107) mmol/L Carbon Dioxide (22-30) mmol/L Glucose 113 H 114 H (74-99) mg/dL POC Glucose (mg/dL) (70-110) mg/dL Plasma Lactic Acid Ron (0.7-2.0) mmol/L Calcium (8.4-10.2) mg/dL Total Protein (6.3-8.2) g/dL Urine Protein (Negative) Urine Mucus (None) /hpf Chest x-ray: report reviewed Assessment and Plan (1) Fever, unknown origin Current Visit: Yes Status: Acute Priority: High Code(s): R50.9 - FEVER, UNSPECIFIED SNOMED Code(s): 9358741 (2) Hyponatremia Current Visit: Yes Status: Acute Priority: High Code(s): E87.1 - HYPO- OSMOLALITY AND HYPONATREMIA SNOMED Code(s): 48648188 (3) Lymphoma Current Visit: Yes Status: Acute Priority: High Code(s): C85.90 - NON- HODGKIN LYMPHOMA, UNSPECIFIED, UNSPECIFIED SITE SNOMED Code(s): 095724275 (4) Rash Current Visit: Yes Status: Acute Code(s): R21 - RASH AND OTHER NONSPECIFIC SKIN ERUPTION SNOMED Code(s): 863993302 (5) Anxiety about health Current Visit: Yes Status: Acute Priority: High Code(s): F41.8 - OTHER SPECIFIED ANXIETY DISORDERS SNOMED Code(s): 486889040 Plan: Patient is status post his first cycle of Ruxience biosimilar and Treanda for lymphoma. Patient had fever, joint pains and rash. This can be associated with tumor lysis syndrome/serum sickness from monoclonal antibody. TLS labs ordered. Monoclonal antibody therapy will be adjusted. Prednisone and Benadryl started for the rash. Patient has had hyponatremia In the past with extensive hospitalizations. Nephrology following and adjusting medications. For patient's nausea added olanzapine, and Compazine. Anxiety medications adjusted.
[2022-10-07 19:40] LABS: Phosphorus 3.8 mg/dL (2.5-4.5)
[2022-10-07] MEDS ORDERED: SODIUM CHLORIDE TAB 1 GM TAB PO STA (20:11)
[2022-10-07] MEDS ORDERED: SODIUM CHLORIDE 0.9% 1,000 ML IV SCH (20:15)
[2022-10-07 20:20] LABS: Glucose,Whole Blood 144 mg/dL (70-110)
[2022-10-07] MEDS: ALPRAZolam 0.5 MG TAB PO PRN (21:01)
[2022-10-07] MEDS: MIRTAZAPINE 15 MG TAB PO SCH (21:01)
[2022-10-07] MEDS: OLANZapine 5 MG TAB PO SCH (21:01)
[2022-10-08 06:08] LABS: Glucose,Whole Blood 170 mg/dL (70-110)
[2022-10-08] MEDS: PANTOPRAZOLE 40 MG TABLET PO SCH (06:11)
--- NOTE | 2022-10-08 08:12 | P.PN ---
Subjective Progress Note Date: 10/08/22 Principal diagnosis: Non-Hodgkin's lymphoma with fever and element of hyponatremia. This is a continue present 62-year-old white male who is human absent lymphoma and fever. The patient is comfortable this morning. No voiding difficulties. Sodium is pending this morning. Objective - Vital Signs Vital signs: Vital Signs Temp 97.8 F 10/08/22 08:06 Pulse 94 10/08/22 08:06 Resp 18 10/08/22 08:06 BP 124/61 10/08/22 08:06 Pulse Ox 97 10/08/22 08:06 FiO2 Intake & Output 10/07/22 10/08/22 10/08/22 18:59 06:59 18:59 Intake Total 615 Output Total 600 350 Balance 15 -350 Intake: Intake, IV Titration 75 Amount Sodium Chloride 0.9% 1, 75 000 ml @ 75 mls/hr IV . [id number] ONE Rx#:[id number] Oral 540 Output: Urine 600 350 Other: Voiding Method Toilet Toilet # Voids 1 - Constitutional General appearance: Present: average body habitus - EENT Eyes: Absent: abnormal pupil - Neck Neck: Absent: lymphadenopathy - Cardiovascular Rhythm: regular Heart sounds: normal: S1, S2 Abnormal Heart Sounds: Absent: S3 Gallop - Gastrointestinal General gastrointestinal: Present: soft. Absent: tenderness - Integumentary Integumentary: Present: rash - Neurologic Neurologic: Absent: focal deficits - Musculoskeletal Musculoskeletal: Present: gait normal - Labs CBC & Chem 7: 10/07/22 06:49 10/07/22 19:01 Labs: Abnormal Lab Results - Last 24 Hours (Table) 10/07/22 10/07/22 10/07/22 Range/Units 06:49 11:09 12:01 Sodium 123 L (137-145) mmol/L POC Glucose (mg/dL) 114 H (70-110) mg/dL Osmolality 265 L (280-301) mosm/kg Uric Acid (3.5-8.5) mg/dL 10/07/22 10/07/22 10/07/22 Range/Units 15:11 19:01 20:18 Sodium 119 L* 118 L* (137-145) mmol/L POC Glucose (mg/dL) 144 H (70-110) mg/dL Osmolality (280-301) mosm/kg Uric Acid 3.0 L (3.5-8.5) mg/dL 10/08/22 Range/Units 06:06 Sodium (137-145) mmol/L POC Glucose (mg/dL) 170 H (70-110) mg/dL Osmolality (280-301) mosm/kg Uric Acid (3.5-8.5) mg/dL Microbiology - Last 24 Hours (Table) 10/06/22 18:45 Blood Culture - Preliminary Blood No Growth after 24 hours 10/06/22 19:00 Blood Culture - Preliminary Blood No Growth after 24 hours Assessment and Plan (1) Fatigue Current Visit: Yes Status: Acute Code(s): R53.83 - OTHER FATIGUE SNOMED Code(s): 21129104 (2) Fever, unknown origin Current Visit: Yes Status: Acute Priority: High Code(s): R50.9 - FEVER, UNSPECIFIED SNOMED Code(s): 3932710 (3) Hyponatremia Current Visit: Yes Status: Acute Priority: High Code(s): E87.1 - HYPO- OSMOLALITY AND HYPONATREMIA SNOMED Code(s): 63335359 (4) Rash Current Visit: Yes Status: Acute Code(s): R21 - RASH AND OTHER NONSPECIFIC SKIN ERUPTION SNOMED Code(s): 392959142 Plan: Multifactorial rash. I suspect it's related to drug drug interaction versus direct reaction from chemotherapy versus malignancy. Follow hyponatremia closely. Appreciate multiple consultants input. Check CBC and CMP in the
[2022-10-08 08:33] LABS: ALT 15 U/L (4-49); AST 24 U/L (17-59); African American GFR (CKD) >90 (>60 ml/min/1.73 sqM); Albumin 3.6 g/dL (3.5-5.0); Alkaline Phosphatase 83 U/L (38-126); Anion Gap 8 mmol/L; Blood Urea Nitrogen 16 mg/dL (9-20); Calcium 9.1 mg/dL (8.4-10.2); Carbon Dioxide 25 mmol/L (22-30); Chloride 95 mmol/L (98-107); Glucose 171 mg/dL (74-99); Magnesium 2.1 mg/dL (1.6-2.3); Non-African American GFR(CKD) >90 (>60 ml/min/1.73 sqM); Potassium 4.6 mmol/L (3.5-5.1); Sodium 128 mmol/L (137-145); Total Bilirubin 0.6 mg/dL (0.2-1.3); Total Protein 8.1 g/dL (6.3-8.2)
[2022-10-08] MEDS ORDERED: DEXTROSE 5% IN WATER 1,000 ML IV ONE (09:21)
--- NOTE | 2022-10-08 09:25 | P.PN ---
Subjective Patient is seen in follow-up for hyponatremia. Sodium level was 116 on admission and was up to 124 yesterday morning. This was reversed with D5W and sodium came down to 118 as of last night and is up to 128 this morning. He did receive normal saline for about 5 hours and 1 dose of sodium chloride tablets night. Oral intake is good. No edema. Vital signs are stable. General: Awake. No acute distress. HEENT: Head exam is unremarkable. LUNGS: Breath sounds decreased. HEART: Rate and Rhythm are regular. ABDOMEN: Soft, no distention. EXTREMITITES: No edema. Objective - Vital Signs Vital signs: Vital Signs Temp 97.8 F 10/08/22 08:06 Pulse 94 10/08/22 08:06 Resp 18 10/08/22 08:06 BP 124/61 10/08/22 08:06 Pulse Ox 97 10/08/22 08:06 FiO2 Intake & Output 10/07/22 10/08/22 10/08/22 18:59 06:59 18:59 Intake Total 615 Output Total 600 350 Balance 15 -350 Intake: Intake, IV Titration 75 Amount Sodium Chloride 0.9% 1, 75 000 ml @ 75 mls/hr IV . [id number] ONE Rx#:[id number] Oral 540 Output: Urine 600 350 Other: Voiding Method Toilet Toilet # Voids 1 - Labs CBC & Chem 7: 10/07/22 06:49 10/08/22 07:55 Labs: Abnormal Lab Results - Last 24 Hours (Table) 10/07/22 10/07/22 10/07/22 Range/Units 06:49 11:09 12:01 Sodium 123 L (137-145) mmol/L Chloride (98-107) mmol/L Creatinine (0.66-1.25) mg/dL Glucose (74-99) mg/dL POC Glucose (mg/dL) 114 H (70-110) mg/dL Osmolality 265 L (280-301) mosm/kg Uric Acid (3.5-8.5) mg/dL 10/07/22 10/07/22 10/07/22 Range/Units 15:11 19:01 20:18 Sodium 119 L* 118 L* (137-145) mmol/L Chloride (98-107) mmol/L Creatinine (0.66-1.25) mg/dL Glucose (74-99) mg/dL POC Glucose (mg/dL) 144 H (70-110) mg/dL Osmolality (280-301) mosm/kg Uric Acid 3.0 L (3.5-8.5) mg/dL 10/08/22 10/08/22 Range/Units 06:06 07:55 Sodium 128 L (137-145) mmol/L Chloride 95 L (98-107) mmol/L Creatinine 0.64 L (0.66-1.25) mg/dL Glucose 171 H (74-99) mg/dL POC Glucose (mg/dL) 170 H (70-110) mg/dL Osmolality (280-301) mosm/kg Uric Acid (3.5-8.5) mg/dL Microbiology - Last 24 Hours (Table) 10/06/22 18:45 Blood Culture - Preliminary Blood No Growth after 24 hours 10/06/22 19:00 Blood Culture - Preliminary Blood No Growth after 24 hours Assessment and Plan Plan: Assessment: 1. Hypovolemic hyponatremia with component of poor solute intake and underlying SIADH from malignancy. Sodium level 128 this morning. TSH normal. Urine sodium 120 and urine osmolality 422. 2. Hyperkalemia secondary to hyperglycemia and acidosis. Improved with medical management. 3. Non-Hodgkin's lymphoma maintained on chemotherapy outpatient. Plan: Resume D5W to prevent further rise in sodium level. Repeat sodium level this afternoon. Follow-up cortisol level. Encouraged oral intake, especially protein.
[2022-10-08] MEDS: CEFEPIME 2 GM in SODIUM CHLORIDE 0.9% 100 ML IVPB SCH ×3 (09:37→23:19)
[2022-10-08] MEDS: ZINC SULFATE 220 MG CAP PO SCH (09:38)
[2022-10-08] MEDS: NICOTINE 21MG/24HR PATCH TRANSDERM PRN (09:38)
[2022-10-08] MEDS: diphenhydrAMINE 25 MG CAP PO SCH ×3 (09:38→20:35)
[2022-10-08] MEDS: CHOLECALCIFEROL 25 MCG (1000 IU) TABLET PO SCH (09:39)
[2022-10-08] MEDS: predniSONE 50 MG TAB PO SCH (09:39)
[2022-10-08] MEDS: ALPRAZolam 0.5 MG TAB PO PRN ×2 (09:39→20:35)
[2022-10-08] MEDS: FERROUS SULFATE 325 MG TAB PO SCH (09:39)
[2022-10-08] MEDS: traMADol 50 MG TAB PO SCH ×4 (09:39→20:36)
[2022-10-08] MEDS: ASCORBIC ACID 500 MG TAB PO SCH (09:39)
[2022-10-08] MEDS: allopurinoL 100 MG TAB PO SCH (09:39)
[2022-10-08 12:03] LABS: Glucose,Whole Blood 218 mg/dL (70-110)
--- NOTE | 2022-10-08 16:20 | P.PN ---
Subjective Progress Note Date: 10/08/22 Principal diagnosis: NHL, SIADH In f/u today rash is much improved, no more puritis. He did have 2 fevers yesterday, none today. He denies any significant physical c/o today. Objective - Vital Signs Vital signs: Vital Signs Temp 98.2 F 10/08/22 15:46 Pulse 82 10/08/22 15:46 Resp 18 10/08/22 15:46 BP 124/71 10/08/22 15:46 Pulse Ox 98 10/08/22 15:46 FiO2 Intake & Output 10/07/22 10/08/22 10/08/22 18:59 06:59 18:59 Intake Total 615 840 Output Total 600 350 Balance 15 -350 840 Intake: Intake, IV Titration 75 Amount Sodium Chloride 0.9% 1, 75 000 ml @ 75 mls/hr IV . [id number] ONE Rx#:[id number] Oral 540 840 Output: Urine 600 350 Other: Voiding Method Toilet Toilet Toilet # Voids 1 - Constitutional General appearance: Present: average body habitus, cooperative, no acute distress - EENT Eyes: Present: anicteric sclerae, EOMI ENT: Present: hearing grossly normal - Respiratory Respiratory: bilateral: CTA - Cardiovascular Rhythm: regular Heart sounds: normal: S1, S2 Abnormal Heart Sounds: Absent: systolic murmur, diastolic murmur, rub, S3 Gallop, S4 Gallop, click, other - Peripheral edema leg Peripheral Edema: bilateral: None - Gastrointestinal General gastrointestinal: Present: normal bowel sounds, soft - Integumentary Integumentary: Present: normal - Neurologic Neurologic: Present: CNII-XII intact - Musculoskeletal Musculoskeletal: Present: strength equal bilaterally - Psychiatric Psychiatric: Present: A&O x's 3, appropriate affect, intact judgment & insight - Labs CBC & Chem 7: 10/07/22 06:49 10/08/22 12:34 Labs: Abnormal Lab Results - Last 24 Hours (Table) 10/07/22 10/07/22 10/07/22 Range/Units 15:11 19:01 20:18 Sodium 119 L* 118 L* (137-145) mmol/L Chloride (98-107) mmol/L Creatinine (0.66-1.25) mg/dL Glucose (74-99) mg/dL POC Glucose (mg/dL) 144 H (70-110) mg/dL Uric Acid 3.0 L (3.5-8.5) mg/dL 10/08/22 10/08/22 10/08/22 Range/Units 06:06 07:55 11:57 Sodium 128 L (137-145) mmol/L Chloride 95 L (98-107) mmol/L Creatinine 0.64 L (0.66-1.25) mg/dL Glucose 171 H (74-99) mg/dL POC Glucose (mg/dL) 170 H 218 H (70-110) mg/dL Uric Acid (3.5-8.5) mg/dL 10/08/22 Range/Units 12:34 Sodium 126 L (137-145) mmol/L Chloride (98-107) mmol/L Creatinine (0.66-1.25) mg/dL Glucose (74-99) mg/dL POC Glucose (mg/dL) (70-110) mg/dL Uric Acid (3.5-8.5) mg/dL Microbiology - Last 24 Hours (Table) 10/06/22 18:45 Blood Culture - Preliminary Blood No Growth after 24 hours 10/06/22 19:00 Blood Culture - Preliminary Blood No Growth after 24 hours Assessment and Plan (1) Fever, unknown origin Current Visit: Yes Status: Acute Priority: High Code(s): R50.9 - FEVER, UNSPECIFIED SNOMED Code(s): 2150450 (2) Hyponatremia Current Visit: Yes Status: Acute Priority: High Code(s): E87.1 - HYPO- OSMOLALITY AND HYPONATREMIA SNOMED Code(s): 79763569 (3) Lymphoma Current Visit: Yes Status: Acute Priority: High Code(s): C85.90 - NON- HODGKIN LYMPHOMA, UNSPECIFIED, UNSPECIFIED SITE SNOMED Code(s): 158096561 (4) Rash Current Visit: Yes Status: Acute Code(s): R21 - RASH AND OTHER NONSPECIFIC SKIN ERUPTION SNOMED Code(s): 188156513 (5) Anxiety about health Current Visit: Yes Status: Acute Priority: High Code(s): F41.8 - OTHER SPECIFIED ANXIETY DISORDERS SNOMED Code(s): 194344633 Plan: Patient is status post his first cycle of Ruxience biosimilar and Treanda for lymphoma. Patient had fever, joint pains and rash. This can be associated with tumor lysis syndrome/serum sickness from monoclonal antibody. TLS labs negative. Resolution of rash rather quickly after initiation of treatment with steroids and benadryl. Monoclonal antibody therapy changed, orders sent for the same. Patient has been hospitalized in the past with hyponatremia. Recurrent. SIADH 2/2 lymphoma. Would anticipate improvement as lymphoma is treated. Nephrology following and adjusting medications to improve Na+ levels to an acceptable level, not necessarily normal, but adequate so pt is not symptomatic. For patient's nausea, added olanzapine, and Compazine. No c/o nausea today Anxiety medications adjusted, pt not reporting any persisting, uncontrolled anxiety. attests:I have seen and examined pt, performed H&P, developed impression and plan of care. Discussed with dictator. Agree with documentation, dictated as a scribe.
[2022-10-08 17:11] LABS: Glucose,Whole Blood 258 mg/dL (70-110)
[2022-10-08] MEDS ORDERED: DEXTROSE 50% SYRINGE 50 ML IVP PRN ×2 (18:46)
[2022-10-08 20:02] LABS: Glucose,Whole Blood 292 mg/dL (70-110)
[2022-10-08] MEDS: OLANZapine 5 MG TAB PO SCH (20:35)
[2022-10-08] MEDS: MIRTAZAPINE 15 MG TAB PO SCH (20:36)
[2022-10-08] MEDS: INSULIN ASPART (NovoLOG) 100 UNIT/ML VIAL SQ SCH (20:36)
[2022-10-09 06:11] LABS: Glucose,Whole Blood 151 mg/dL (70-110)
[2022-10-09] MEDS: INSULIN ASPART (NovoLOG) 100 UNIT/ML VIAL SQ SCH ×4 (06:12→20:02)
[2022-10-09] MEDS: PANTOPRAZOLE 40 MG TABLET PO SCH (06:33)
[2022-10-09] MEDS: CEFEPIME 2 GM in SODIUM CHLORIDE 0.9% 100 ML IVPB SCH ×2 (08:13→15:50)
[2022-10-09] MEDS: allopurinoL 100 MG TAB PO SCH (08:14)
[2022-10-09] MEDS: ASCORBIC ACID 500 MG TAB PO SCH (08:14)
[2022-10-09] MEDS: NICOTINE 21MG/24HR PATCH TRANSDERM PRN (08:14)
[2022-10-09] MEDS: predniSONE 50 MG TAB PO SCH (08:15)
[2022-10-09] MEDS: CHOLECALCIFEROL 25 MCG (1000 IU) TABLET PO SCH (08:15)
[2022-10-09] MEDS: FERROUS SULFATE 325 MG TAB PO SCH (08:15)
[2022-10-09] MEDS: ZINC SULFATE 220 MG CAP PO SCH (08:15)
[2022-10-09] MEDS: traMADol 50 MG TAB PO SCH ×4 (08:15→21:40)
[2022-10-09] MEDS: diphenhydrAMINE 25 MG CAP PO SCH ×3 (08:15→21:40)
[2022-10-09 09:20] LABS: Anisocytosis Slight; HCT 29.1 % (39.0-53.0); HGB 9.6 gm/dL (13.0-17.5); Hypochromasia Moderate; MCH 27.1 pg (25.0-35.0); MCHC 32.9 g/dL (31.0-37.0); MCV 82.4 fL (80.0-100.0); Mean Platelet Volume 7.8; Microcytosis Slight; Platelet Count 326 k/uL (150-450); RBC 3.53 m/uL (4.30-5.90); RDW 18.3 % (11.5-15.5); WBC 10.6 k/uL (3.8-10.6)
[2022-10-09 09:44] LABS: ALT 17 U/L (4-49); AST 19 U/L (17-59); African American GFR (CKD) >90 (>60 ml/min/1.73 sqM); Albumin 3.5 g/dL (3.5-5.0); Alkaline Phosphatase 81 U/L (38-126); Anion Gap 6 mmol/L; Blood Urea Nitrogen 17 mg/dL (9-20); Calcium 9.1 mg/dL (8.4-10.2); Carbon Dioxide 28 mmol/L (22-30); Chloride 96 mmol/L (98-107); Glucose 187 mg/dL (74-99); Non-African American GFR(CKD) >90 (>60 ml/min/1.73 sqM); Potassium 3.8 mmol/L (3.5-5.1); Sodium 130 mmol/L (137-145); Total Bilirubin 0.4 mg/dL (0.2-1.3); Total Protein 7.5 g/dL (6.3-8.2)
--- NOTE | 2022-10-09 10:05 | P.PN ---
Subjective Patient is seen for follow-up for hyponatremia. Serum sodium had increased rapidly and therefore patient was maintained on D5W. This is now discontinued. Sodium 126 yesterday and increased to 1:30 today. No significant complaints today. Objective - Vital Signs Vital signs: Vital Signs Temp 97.6 F 10/09/22 08:08 Pulse 80 10/09/22 08:08 Resp 18 10/09/22 08:08 BP 125/65 10/09/22 08:08 Pulse Ox 95 10/09/22 09:04 FiO2 Intake & Output 10/08/22 10/09/22 10/09/22 18:59 06:59 18:59 Intake Total 1200 Balance 1200 Intake: Oral 1200 Other: Voiding Method Toilet Toilet # Voids 2 2 - Exam Patient is awake, comfortable, no acute distress Alert oriented 3 Examination of the heart S1 and S2 Examination of the lungs bilateral breath sounds are heard Abdomen is soft nontender Examination of the lower extremity shows no evidence of edema [employer] exam grossly intact - Labs CBC & Chem 7: 10/09/22 08:38 10/09/22 08:38 Labs: Abnormal Lab Results - Last 24 Hours (Table) 10/08/22 10/08/22 10/08/22 Range/Units 11:57 12:34 17:05 RBC (4.30-5.90) m/uL Hgb (13.0-17.5) gm/dL Hct (39.0-53.0) % RDW (11.5-15.5) % Sodium 126 L (137-145) mmol/L Chloride (98-107) mmol/L Glucose (74-99) mg/dL POC Glucose (mg/dL) 218 H 258 H (70-110) mg/dL 10/08/22 10/09/22 10/09/22 Range/Units 20:00 06:09 08:38 RBC 3.53 L (4.30-5.90) m/uL Hgb 9.6 L (13.0-17.5) gm/dL Hct 29.1 L (39.0-53.0) % RDW 18.3 H (11.5-15.5) % Sodium (137-145) mmol/L Chloride (98-107) mmol/L Glucose (74-99) mg/dL POC Glucose (mg/dL) 292 H 151 H (70-110) mg/dL 10/09/22 Range/Units 08:38 RBC (4.30-5.90) m/uL Hgb (13.0-17.5) gm/dL Hct (39.0-53.0) % RDW (11.5-15.5) % Sodium 130 L (137-145) mmol/L Chloride 96 L (98-107) mmol/L Glucose 187 H (74-99) mg/dL POC Glucose (mg/dL) (70-110) mg/dL Microbiology - Last 24 Hours (Table) 10/06/22 19:00 Blood Culture - Preliminary Blood No Growth after 48 hours 10/06/22 18:45 Blood Culture - Preliminary Blood No Growth after 48 hours Assessment and Plan Assessment: 1. Hypovolemic hyponatremia with component of poor solute intake and underlying SIADH from malignancy. TSH normal. Urine sodium 120 and urine osmolality 422. Sodium had increased rapidly and therefore patient was maintained on D5W. This is now discontinued. Sodium is 1:30 today. 2. Hyperkalemia secondary to hyperglycemia and acidosis. Improved with medical management. 3. Non-Hodgkin's lymphoma maintained on chemotherapy outpatient. Plan: Continue off of D5W We can allow the sodium to rise Hold sodium chloride tablets for now Repeat sodium at noon
[2022-10-09] MEDS: ALPRAZolam 0.5 MG TAB PO PRN ×2 (10:34→18:43)
[2022-10-09 11:58] LABS: Glucose,Whole Blood 258 mg/dL (70-110)
[2022-10-09] MEDS ORDERED: SODIUM CHLORIDE TAB 1 GM TAB PO STA (16:44)
[2022-10-09 17:07] LABS: Glucose,Whole Blood 204 mg/dL (70-110)
[2022-10-09 19:52] LABS: Glucose,Whole Blood 242 mg/dL (70-110)
[2022-10-09] MEDS: OLANZapine 5 MG TAB PO SCH (21:40)
[2022-10-09] MEDS: MIRTAZAPINE 15 MG TAB PO SCH (21:40)
[2022-10-10] MEDS: CEFEPIME 2 GM in SODIUM CHLORIDE 0.9% 100 ML IVPB SCH ×4 (00:06→23:14)
[2022-10-10 05:49] LABS: Glucose,Whole Blood 100 mg/dL (70-110)
[2022-10-10] MEDS: INSULIN ASPART (NovoLOG) 100 UNIT/ML VIAL SQ SCH ×4 (05:56→21:16)
[2022-10-10] MEDS: PANTOPRAZOLE 40 MG TABLET PO SCH (06:30)
[2022-10-10] MEDS: allopurinoL 100 MG TAB PO SCH (09:09)
[2022-10-10] MEDS: NICOTINE 21MG/24HR PATCH TRANSDERM PRN (09:09)
[2022-10-10] MEDS: predniSONE 50 MG TAB PO SCH (09:10)
[2022-10-10] MEDS: ZINC SULFATE 220 MG CAP PO SCH (09:10)
[2022-10-10] MEDS: FERROUS SULFATE 325 MG TAB PO SCH (09:10)
[2022-10-10] MEDS: ASCORBIC ACID 500 MG TAB PO SCH (09:10)
[2022-10-10] MEDS: CHOLECALCIFEROL 25 MCG (1000 IU) TABLET PO SCH (09:10)
[2022-10-10] MEDS: diphenhydrAMINE 25 MG CAP PO SCH ×3 (09:10→21:16)
[2022-10-10] MEDS: traMADol 50 MG TAB PO SCH ×4 (09:10→21:16)
[2022-10-10 09:18] LABS: African American GFR (CKD) >90 (>60 ml/min/1.73 sqM); Anion Gap 7 mmol/L; Blood Urea Nitrogen 20 mg/dL (9-20); Calcium 9.8 mg/dL (8.4-10.2); Carbon Dioxide 30 mmol/L (22-30); Chloride 96 mmol/L (98-107); Glucose 113 mg/dL (74-99); Non-African American GFR(CKD) >90 (>60 ml/min/1.73 sqM); Potassium 4.3 mmol/L (3.5-5.1); Sodium 133 mmol/L (137-145)
[2022-10-10 09:26] LABS: Anisocytosis Slight; Basophils # (A) 0.1 k/uL (0-0.2); Basophils % (A) 1 %; Eosinophils # (A) 0.4 k/uL (0-0.7); Eosinophils % (A) 3 %; HCT 33.2 % (39.0-53.0); HGB 10.6 gm/dL (13.0-17.5); Hypochromasia Moderate; Lymphocytes # (A) 1.9 k/uL (1.0-4.8); Lymphocytes % (A) 17 %; MCH 26.5 pg (25.0-35.0); MCHC 32.1 g/dL (31.0-37.0); MCV 82.8 fL (80.0-100.0); Monocytes # (A) 0.8 k/uL (0-1.0); Monocytes % (A) 7 %; Neutrophils # (A) 7.9 k/uL (1.3-7.7); Neutrophils % (A) 69 %; Platelet Count 391 k/uL (150-450); RBC 4.01 m/uL (4.30-5.90); RDW 17.9 % (11.5-15.5); WBC 11.5 k/uL (3.8-10.6)
--- NOTE | 2022-10-10 09:57 | P.PN ---
Subjective Patient is seen for follow-up for hyponatremia. Serum sodium had increased rapidly and therefore patient was maintained on D5W. This is now discontinued. Sodium was 128 yesterday and patient received a dose of sodium chloride tabs. Sodium this morning is 133. No complaints today Objective - Vital Signs Vital signs: Vital Signs Temp 98.4 F 10/10/22 07:45 Pulse 105 H 10/10/22 07:45 Resp 18 10/10/22 07:45 BP 140/67 10/10/22 07:45 Pulse Ox 95 10/10/22 07:45 FiO2 Intake & Output 10/09/22 10/10/22 10/10/22 18:59 06:59 18:59 Intake Total 958 240 Balance 958 240 Intake: Oral 958 240 Other: Voiding Method Toilet Toilet # Voids 2 3 - Exam Patient is awake, comfortable, no acute distress Alert oriented 3 Examination of the heart S1 and S2 Examination of the lungs bilateral breath sounds are heard Abdomen is soft nontender Examination of the lower extremity shows no evidence of edema [employer]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 - Labs CBC & Chem 7: 10/10/22 08:08 10/10/22 08:08 Labs: Abnormal Lab Results - Last 24 Hours (Table) 10/09/22 10/09/22 10/09/22 Range/Units 11:49 13:03 16:36 WBC (3.8-10.6) k/uL RBC (4.30-5.90) m/uL Hgb (13.0-17.5) gm/dL Hct (39.0-53.0) % RDW (11.5-15.5) % Neutrophils # (1.3-7.7) k/uL Sodium 128 L (137-145) mmol/L Chloride (98-107) mmol/L Glucose (74-99) mg/dL POC Glucose (mg/dL) 258 H 204 H (70-110) mg/dL 10/09/22 10/10/22 10/10/22 Range/Units 19:50 08:08 08:08 WBC 11.5 H (3.8-10.6) k/uL RBC 4.01 L (4.30-5.90) m/uL Hgb 10.6 L (13.0-17.5) gm/dL Hct 33.2 L (39.0-53.0) % RDW 17.9 H (11.5-15.5) % Neutrophils # 7.9 H (1.3-7.7) k/uL Sodium 133 L (137-145) mmol/L Chloride 96 L (98-107) mmol/L Glucose 113 H (74-99) mg/dL POC Glucose (mg/dL) 242 H (70-110) mg/dL Microbiology - Last 24 Hours (Table) 10/06/22 18:45 Blood Culture - Preliminary Blood No Growth after 72 hours 10/06/22 19:00 Blood Culture - Preliminary Blood No Growth after 72 hours Assessment and Plan Assessment: 1. Hypovolemic hyponatremia initially with component of poor solute intake and underlying SIADH from malignancy. TSH normal. Urine sodium 120 and urine osmolality 422. Sodium had increased rapidly and therefore patient was maintained on D5W. This is now discontinued. Status post sodium chloride tab 1 g yesterday. Sodium is 133 today. 2. Hyperkalemia secondary to hyperglycemia and acidosis. Improved with medical management. 3. Non-Hodgkin's lymphoma maintained on chemotherapy outpatient. Plan: Continue off of D5W We can allow the sodium to rise Patient can be discharged from nephrology standpoint Need to monitor sodium levels closely as outpatient and patient will likely need to take sodium chloride tabs every other day or daily based on repeat sodium levels as outpatient. Follow-up in the office in 1 week's time if discharged today.
[2022-10-10 12:14] LABS: Glucose,Whole Blood 227 mg/dL (70-110)
[2022-10-10] MEDS: ALPRAZolam 0.5 MG TAB PO PRN ×2 (16:00→23:17)
[2022-10-10 16:58] LABS: Glucose,Whole Blood 224 mg/dL (70-110)
[2022-10-10 20:04] LABS: Glucose,Whole Blood 213 mg/dL (70-110)
[2022-10-10] MEDS: OLANZapine 5 MG TAB PO SCH (21:16)
[2022-10-10] MEDS: MIRTAZAPINE 15 MG TAB PO SCH (21:16)
--- NOTE | 2022-10-10 23:48 | P.PN ---
Subjective Progress Note Date: 10/09/22 Non-Hodgkin's lymphoma with fever and element of hyponatremia. This is a continue present 62-year-old white male With known history of non- Hodgkin's lymphoma and fever.. 10/09/2022 Patient is currently resting in bed. Awake alert and oriented. No complaints of chest pain or shortness of breath. Sodium level increased to 130 today. On D5 water dueto rapid correction of sodium which has been discontinued today Patient is tolerating oral diet. No nausea vomiting abdominal pain or diarrhea. Patient has been afebrile. No cough or sputum production. Blood cultures have been negative so far. Nephrology and oncology on board. Current medications reviewed... Objective - Vital Signs Vital signs: Vital Signs Temp 98.2 F 10/09/22 20:00 Pulse 76 10/09/22 20:00 Resp 19 10/09/22 20:00 BP 130/67 10/09/22 20:00 Pulse Ox 98 10/09/22 20:00 FiO2 Intake & Output 10/09/22 10/09/22 10/10/22 06:59 18:59 06:59 Intake Total 958 Balance 958 Intake: Oral 958 Other: Voiding Method Toilet Toilet # Voids 2 2 - Exam PHYSICAL EXAMINATION: Patient is lying in the bed comfortably, no acute distress, awake alert and oriented.. HEENT: Normocephalic. Neck is supple. Pupils reactive. Nostrils clear. Oral cavity is moist. Neck reveals no JVD, carotid bruits, or thyromegaly. CHEST EXAMINATION: Trachea is central. Symmetrical expansion. Lung sagluero clear to auscultation and percussion. CARDIAC: Normal S1, S2 with no gallops. No murmurs ABDOMEN: Soft. Bowel sounds present. Nontender. No organomegaly. No abdominal bruits. Extremities: reveal no edema. No clubbing or cyanosis Neurologically awake, alert, oriented x3 with well-coordinated movements. No focal deficits noted Skin: No rash or skin lesions. Psychiatric: Coperative. Nonsuicidal, Musculoskeletal: No joint swelling or deformity. Normal range of motion. - Labs CBC & Chem 7: 10/10/22 08:08 10/10/22 08:08 Labs: Abnormal Lab Results - Last 24 Hours (Table) 10/09/22 10/09/22 10/09/22 Range/Units 06:09 08:38 08:38 RBC 3.53 L (4.30-5.90) m/uL Hgb 9.6 L (13.0-17.5) gm/dL Hct 29.1 L (39.0-53.0) % RDW 18.3 H (11.5-15.5) % Sodium 130 L (137-145) mmol/L Chloride 96 L (98-107) mmol/L Glucose 187 H (74-99) mg/dL POC Glucose (mg/dL) 151 H (70-110) mg/dL 10/09/22 10/09/22 10/09/22 Range/Units 11:49 13:03 16:36 RBC (4.30-5.90) m/uL Hgb (13.0-17.5) gm/dL Hct (39.0-53.0) % RDW (11.5-15.5) % Sodium 128 L (137-145) mmol/L Chloride (98-107) mmol/L Glucose (74-99) mg/dL POC Glucose (mg/dL) 258 H 204 H (70-110) mg/dL 10/09/22 Range/Units 19:50 RBC (4.30-5.90) m/uL Hgb (13.0-17.5) gm/dL Hct (39.0-53.0) % RDW (11.5-15.5) % Sodium (137-145) mmol/L Chloride (98-107) mmol/L Glucose (74-99) mg/dL POC Glucose (mg/dL) 242 H (70-110) mg/dL Microbiology - Last 24 Hours (Table) 10/06/22 19:00 Blood Culture - Preliminary Blood No Growth after 48 hours 10/06/22 18:45 Blood Culture - Preliminary Blood No Growth after 48 hours Assessment and Plan Assessment: Hypovolemic hyponatremia due to decreased solute intake and 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 Hyperkalemia due to hyperglycemia and acidosis improved now. Non-Hodgkin's lymphoma currently on chemotherapy Generalized rash improved now. Fever resolved. Cultures have been negative. . Plan: Patient will need continued empiric antibiotics in the form of cefepime. Cultur es have been negative. Nephrology and oncology is on board. Sodium is improving. Encourage oral intake. Follow-up closely. Time with Patient: Greater than 30
--- NOTE | 2022-10-10 23:50 | P.PN ---
Subjective Progress Note Date: 10/10/22 Non-Hodgkin's lymphoma with fever and element of hyponatremia. This is a continue present 62-year-old white male With known history of non- Hodgkin's lymphoma and fever.. 10/09/2022 Patient is currently resting in bed. Awake alert and oriented. No complaints of chest pain or shortness of breath. Sodium level increased to 130 today. On D5 water dueto rapid correction of sodium which has been discontinued today Patient is tolerating oral diet. No nausea vomiting abdominal pain or diarrhea. Patient has been afebrile. No cough or sputum production. Blood cultures have been negative so far. Nephrology and oncology on board. 10/10/2022 Patient is currently sitting in the chair. Tolerating oral diet. No complaints of nausea vomiting abdominal pain or diarrhea. Patient has been afebrile over night. No cough or sputum production. No abdominal pain. No dysuria or hematuria. Lab data showed WBC 11.5 hemoglobin 10.6 and platelets 391 sodium improved to 133 potassium 4.3 chloride 96 bicarb is 30 BUN 20 and creatinine 0.77 and blood sugar is 133. Patient received sodium tablets. Anticipate discharge in the next 24 hours. The cultures have been negative. Patient is currently on cefepime. Empirically. Current medications reviewed... Objective - Vital Signs Vital signs: Vital Signs Temp 98.1 F 10/10/22 15:58 Pulse 80 10/10/22 15:58 Resp 18 10/10/22 15:58 BP 128/68 10/10/22 15:58 Pulse Ox 97 10/10/22 15:58 FiO2 Intake & Output 10/09/22 10/10/22 10/10/22 18:59 06:59 18:59 Intake Total 958 240 Balance 958 240 Intake: Oral 958 240 Other: Voiding Method Toilet Toilet Toilet # Voids 2 3 - Exam PHYSICAL EXAMINATION: Patient is lying in the bed comfortably, no acute distress, awake alert and oriented.. HEENT: Normocephalic. Neck is supple. Pupils reactive. Nostrils clear. Oral cavity is moist. Neck reveals no JVD, carotid bruits, or thyromegaly. CHEST EXAMINATION: Trachea is central. Symmetrical expansion. Lung salguero clear to auscultation and percussion. CARDIAC: Normal S1, S2 with no gallops. No murmurs ABDOMEN: Soft. Bowel sounds present. Nontender. No organomegaly. No abdominal bruits. Extremities: reveal no edema. No clubbing or cyanosis Neurologically awake, alert, oriented x3 with well-coordinated movements. No focal deficits noted Skin: No rash or skin lesions. Psychiatric: Coperative. Nonsuicidal, Musculoskeletal: No joint swelling or deformity. Normal range of motion. - Labs CBC & Chem 7: 10/10/22 08:08 10/10/22 08:08 Labs: Abnormal Lab Results - Last 24 Hours (Table) 10/09/22 10/09/22 10/10/22 Range/Units 16:36 19:50 08:08 WBC (3.8-10.6) k/uL RBC (4.30-5.90) m/uL Hgb (13.0-17.5) gm/dL Hct (39.0-53.0) % RDW (11.5-15.5) % Neutrophils # (1.3-7.7) k/uL Sodium 133 L (137-145) mmol/L Chloride 96 L (98-107) mmol/L Glucose 113 H (74-99) mg/dL POC Glucose (mg/dL) 204 H 242 H (70-110) mg/dL 10/10/22 10/10/22 Range/Units 08:08 11:54 WBC 11.5 H (3.8-10.6) k/uL RBC 4.01 L (4.30-5.90) m/uL Hgb 10.6 L (13.0-17.5) gm/dL Hct 33.2 L (39.0-53.0) % RDW 17.9 H (11.5-15.5) % Neutrophils # 7.9 H (1.3-7.7) k/uL Sodium (137-145) mmol/L Chloride (98-107) mmol/L Glucose (74-99) mg/dL POC Glucose (mg/dL) 227 H (70-110) mg/dL Microbiology - Last 24 Hours (Table) 10/06/22 18:45 Blood Culture - Preliminary Blood No Growth after 72 hours 10/06/22 19:00 Blood Culture - Preliminary Blood No Growth after 72 hours Assessment and Plan Assessment: Hypovolemic hyponatremia due to decreased solute intake and 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 Hyperkalemia due to hyperglycemia and acidosis improved now. Non-Hodgkin's lymphoma currently on chemotherapy Generalized rash improved now. Fever resolved. Cultures have been negative. . Plan: Patient will need continued empiric antibiotics in the form of cefepime. Cultures have been negative. Nephrology and oncology is on board. Sodium is improving. Encourage oral intake. Follow-up closely. Time with Patient: Greater than 30
[2022-10-11 06:04] LABS: Glucose,Whole Blood 104 mg/dL (70-110)
[2022-10-11] MEDS: INSULIN ASPART (NovoLOG) 100 UNIT/ML VIAL SQ SCH (06:11)
[2022-10-11] MEDS: PANTOPRAZOLE 40 MG TABLET PO SCH (06:24)
[2022-10-11 07:52] LABS: Anisocytosis Slight; Basophils # (A) 0.1 k/uL (0-0.2); Basophils % (A) 1 %; Eosinophils # (A) 0.3 k/uL (0-0.7); Eosinophils % (A) 2 %; HCT 31.5 % (39.0-53.0); HGB 10.3 gm/dL (13.0-17.5); Hypochromasia Moderate; Lymphocytes # (A) 2.3 k/uL (1.0-4.8); Lymphocytes % (A) 21 %; MCH 27.1 pg (25.0-35.0); MCHC 32.7 g/dL (31.0-37.0); MCV 83.1 fL (80.0-100.0); Mean Platelet Volume 7.2; Monocytes # (A) 0.9 k/uL (0-1.0); Monocytes % (A) 8 %; Neutrophils # (A) 7.2 k/uL (1.3-7.7); Neutrophils % (A) 65 %; Platelet Count 350 k/uL (150-450); RBC 3.79 m/uL (4.30-5.90); WBC 11.1 k/uL (3.8-10.6)
[2022-10-11 07:59] VITALS: BP 128/72; PULSE 93; RESP 15; TEMP 98.3
[2022-10-11] MEDS: allopurinoL 100 MG TAB PO SCH (08:00)
[2022-10-11] MEDS: CHOLECALCIFEROL 25 MCG (1000 IU) TABLET PO SCH (08:00)
[2022-10-11] MEDS: FERROUS SULFATE 325 MG TAB PO SCH (08:00)
[2022-10-11] MEDS: diphenhydrAMINE 25 MG CAP PO SCH (08:00)
[2022-10-11] MEDS: traMADol 50 MG TAB PO SCH (08:00)
[2022-10-11] MEDS: predniSONE 50 MG TAB PO SCH (08:01)
[2022-10-11] MEDS: ZINC SULFATE 220 MG CAP PO SCH (08:01)
[2022-10-11] MEDS: ASCORBIC ACID 500 MG TAB PO SCH (08:01)
[2022-10-11] MEDS: CEFEPIME 2 GM in SODIUM CHLORIDE 0.9% 100 ML IVPB SCH (08:02)
[2022-10-11 08:12] LABS: African American GFR (CKD) >90 (>60 ml/min/1.73 sqM); Anion Gap 4 mmol/L; Blood Urea Nitrogen 21 mg/dL (9-20); Calcium 9.6 mg/dL (8.4-10.2); Carbon Dioxide 34 mmol/L (22-30); Chloride 95 mmol/L (98-107); Glucose 91 mg/dL (74-99); Non-African American GFR(CKD) >90 (>60 ml/min/1.73 sqM); Potassium 4.3 mmol/L (3.5-5.1); Sodium 133 mmol/L (137-145)
--- NOTE | 2022-10-11 08:39 | P.DS ---
Providers Date of admission: 10/06/22 21:07 Attending physician: Rodo Larson Consults: 10/06/22 20:45 Consult Physician Urgent Consulting Provider: Ran Pantoja Consult Reason/Comments: Hyponatremia, hyperkalemia Do you want consulting provider notified?: Yes 10/06/22 21:05 Consult Physician Urgent Consulting Provider: Vicky St Consult Reason/Comments: History of lymphoma, fever of unknown origin Do you want consulting provider notified?: Yes Primary care physician: Rodo Larson - Discharge Diagnosis(es) (1) Hyponatremia Current Visit: Yes Status: Acute Priority: High (2) Fever, unknown origin Current Visit: Yes Status: Acute Priority: High (3) Lymphoma Current Visit: Yes Status: Acute Priority: High (4) Fatigue Current Visit: Yes Status: Acute (5) Hyperkalemia Current Visit: Yes Status: Acute Hospital Course: Is a 62-year-old male admitted for hyponatremia and fever of unknown origin. Fever has subsided sodium is 133 today. We will discharge with plan to take a sodium tablet 1 every other day. Will see patient in the office on and recheck sodium.Patient seen and evaluated by nurse practitioner, physician in agreement with plan Plan - Discharge Summary New Discharge Prescriptions: New Sodium Chloride Tab 1 gm PO DAILY 30 Days #30 tablet Continue Sennosides [Senokot] 8.6 mg PO HS PRN PRN Reason: Constipation Cholecalciferol [Vitamin D3 (25 Mcg = 1000 Iu)] 25 mcg PO DAILY Pantoprazole Sodium [Protonix] 40 mg PO DAILY Ondansetron Odt [Zofran ODT] 4 mg PO Q4H PRN PRN Reason: Nausea And Vomiting Mirtazapine [Remeron] 30 mg PO HS allopurinoL [Zyloprim] 200 mg PO DAILY Acetaminophen [Tylenol Extra Strength] 500 - 1,000 mg PO Q6H PRN PRN Reason: Fever And/ Or Pain Zinc Gluconate [Zinc] 50 mg PO DAILY Ascorbic Acid [Vitamin C] 500 mg PO DAILY Nicotine 21Mg/24Hr Patch [Habitrol] 1 patch TRANSDERM DAILY PRN PRN Reason: SMOKING CESSATION Ferrous Sulfate [Feosol] 325 mg PO DAILY ALPRAZolam [Xanax] 0.25 mg PO BID PRN PRN Reason: Anxiety Discharge Medication List ALPRAZolam [Xanax] 0.25 mg PO BID PRN 10/06/22 [History] Acetaminophen [Tylenol Extra Strength] 500 - 1,000 mg PO Q6H PRN 10/06/22 [History] Ascorbic Acid [Vitamin C] 500 mg PO DAILY 10/06/22 [History] Cholecalciferol [Vitamin D3 (25 Mcg = 1000 Iu)] 25 mcg PO DAILY 10/06/22 [History] Ferrous Sulfate [Feosol] 325 mg PO DAILY 10/06/22 [History] Mirtazapine [Remeron] 30 mg PO HS 10/06/22 [History] Nicotine 21Mg/24Hr Patch [Habitrol] 1 patch TRANSDERM DAILY PRN 10/06/22 [History] Ondansetron Odt [Zofran ODT] 4 mg PO Q4H PRN 10/06/22 [History] Pantoprazole Sodium [Protonix] 40 mg PO DAILY 10/06/22 [History] Sennosides [Senokot] 8.6 mg PO HS PRN 10/06/22 [History] Zinc Gluconate [Zinc] 50 mg PO DAILY 10/06/22 [History] allopurinoL [Zyloprim] 200 mg PO DAILY 10/06/22 [History] Sodium Chloride Tab 1 gm PO DAILY 30 Days #30 tablet 10/11/22 [Rx] Follow up Appointment(s)/Referral(s): [facility],[place] [NON-STAFF] - (Call to set up Meals on Wheels.) [facility] [REFERRING] - Vince Wesley MD [STAFF PHYSICIAN] - 1 Week Rodo Larson MD [Primary Care Provider] - 3 Days (see in office, will recheck sodium) Ashlie Cedillo MD [STAFF PHYSICIAN] - 1 Week Discharge/Stand Alone Forms: Who Do I Call?, Community Resources, Personal Tree Inspector Discharge Disposition: HOME SELF-CARE
--- NOTE | 2022-10-11 11:39 | P.PN ---
Subjective Patient is seen for follow-up for hyponatremia. Serum sodium had increased rapidly and therefore patient was maintained on D5W. This is now discontinued. Sodium staying around 133 for the last 2 days. Maintained on sodium chloride tab once a day currently. No complaints today Objective - Vital Signs Vital signs: Vital Signs Temp 98.3 F 10/11/22 07:58 Pulse 93 10/11/22 07:58 Resp 15 10/11/22 07:58 BP 128/72 10/11/22 07:58 Pulse Ox 96 10/11/22 07:58 FiO2 Intake & Output 10/10/22 10/11/22 10/11/22 18:59 06:59 18:59 Intake Total 840 Balance 840 Intake: Oral 840 Other: Voiding Method Toilet Toilet Toilet # Voids 2 2 - Exam Patient is awake, comfortable, no acute distress Alert oriented 3 Examination of the heart S1 and S2 Examination of the lungs bilateral breath sounds are heard Abdomen is soft nontender Examination of the lower extremity shows no evidence of edema STITCH RUBBER exam grossly intact - Labs CBC & Chem 7: 10/11/22 07:24 10/11/22 07:24 Labs: Abnormal Lab Results - Last 24 Hours (Table) 10/10/22 10/10/22 10/10/22 Range/Units 11:54 16:51 20:03 WBC (3.8-10.6) k/uL RBC (4.30-5.90) m/uL Hgb (13.0-17.5) gm/dL Hct (39.0-53.0) % RDW (11.5-15.5) % Sodium (137-145) mmol/L Chloride (98-107) mmol/L Carbon Dioxide (22-30) mmol/L BUN (9-20) mg/dL POC Glucose (mg/dL) 227 H 224 H 213 H (70-110) mg/dL 10/11/22 10/11/22 Range/Units 07:24 07:24 WBC 11.1 H (3.8-10.6) k/uL RBC 3.79 L (4.30-5.90) m/uL Hgb 10.3 L (13.0-17.5) gm/dL Hct 31.5 L (39.0-53.0) % RDW 18.0 H (11.5-15.5) % Sodium 133 L (137-145) mmol/L Chloride 95 L (98-107) mmol/L Carbon Dioxide 34 H (22-30) mmol/L BUN 21 H (9-20) mg/dL POC Glucose (mg/dL) (70-110) mg/dL Microbiology - Last 24 Hours (Table) 10/06/22 19:00 Blood Culture - Preliminary Blood No Growth after 96 hours 10/06/22 18:45 Blood Culture - Preliminary Blood No Growth after 96 hours Assessment and Plan Assessment: 1. Hypovolemic hyponatremia initially with component of poor solute intake and underlying SIADH from malignancy. TSH normal. Urine sodium 120 and urine osmolality 422. Sodium had increased rapidly and therefore patient was maintained on D5W. This is now discontinued. Maintained on sodium chloride 1 g daily. Sodium is 133 today. 2. Hyperkalemia secondary to hyperglycemia and acidosis. Improved with medical management. 3. Non-Hodgkin's lymphoma maintained on chemotherapy outpatient. Plan: Patient can be discharged from nephrology standpoint Need to monitor sodium levels closely as outpatient and patient will likely need to take sodium chloride tabs daily with close monitoring of labs as outpatient. Follow-up in the office in 1 week's time if discharged today.
[2022-10-11 11:48] LABS: Glucose,Whole Blood 220 mg/dL (70-110)
--- NOTE | 2022-10-11 21:20 | P.PN ---
Subjective Progress Note Date: 10/11/22 Principal diagnosis: NHL, SIADH In f/u today rash is resolved, no fever documented since the , BC negative. Plan is for DC today Objective - Vital Signs Vital signs: Vital Signs Temp 98.3 F 10/11/22 07:58 Pulse 93 10/11/22 07:58 Resp 15 10/11/22 07:58 BP 128/72 10/11/22 07:58 Pulse Ox 96 10/11/22 07:58 FiO2 Intake & Output 10/11/22 10/11/22 10/12/22 06:59 18:59 06:59 Other: Voiding Method Toilet Toilet # Voids 2 - Constitutional General appearance: Present: average body habitus, cooperative, no acute distress - EENT Eyes: Present: anicteric sclerae, EOMI ENT: Present: hearing grossly normal, normal oropharynx - Respiratory Respiratory: bilateral: CTA - Cardiovascular Rhythm: regular Heart sounds: normal: S1, S2 Abnormal Heart Sounds: Absent: systolic murmur, diastolic murmur, rub, S3 Gallop, S4 Gallop, click, other - Peripheral edema leg Peripheral Edema: bilateral: None - Gastrointestinal General gastrointestinal: Present: normal bowel sounds, soft - Integumentary Integumentary: Present: normal - Neurologic Neurologic: Present: CNII-XII intact - Musculoskeletal Musculoskeletal: Present: strength equal bilaterally - Psychiatric Psychiatric: Present: A&O x's 3, appropriate affect, intact judgment & insight - Labs CBC & Chem 7: 10/11/22 07:24 10/11/22 07:24 Labs: Abnormal Lab Results - Last 24 Hours (Table) 10/11/22 10/11/22 10/11/22 Range/Units 07:24 07:24 11:45 WBC 11.1 H (3.8-10.6) k/uL RBC 3.79 L (4.30-5.90) m/uL Hgb 10.3 L (13.0-17.5) gm/dL Hct 31.5 L (39.0-53.0) % RDW 18.0 H (11.5-15.5) % Sodium 133 L (137-145) mmol/L Chloride 95 L (98-107) mmol/L Carbon Dioxide 34 H (22-30) mmol/L BUN 21 H (9-20) mg/dL POC Glucose (mg/dL) 220 H (70-110) mg/dL Microbiology - Last 24 Hours (Table) 10/06/22 19:00 Blood Culture - Preliminary Blood No Growth after 96 hours 10/06/22 18:45 Blood Culture - Preliminary Blood No Growth after 96 hours Assessment and Plan (1) Fever, unknown origin Status: Acute Priority: High Code(s): R50.9 - FEVER, UNSPECIFIED SNOMED Code(s): 6526865 (2) Hyponatremia Status: Acute Priority: High Code(s): E87.1 - HYPO-OSMOLALITY AND HYPONATREMIA SNOMED Code(s): 01003451 (3) Lymphoma Status: Acute Priority: High Code(s): C85.90 - NON-HODGKIN LYMPHOMA, UNSPECIFIED, UNSPECIFIED SITE SNOMED Code(s): 732014404 (4) Rash Status: Acute Code(s): R21 - RASH AND OTHER NONSPECIFIC SKIN ERUPTION SNOMED Code(s): 508675490 (5) Anxiety about health Status: Acute Priority: High Code(s): F41.8 - OTHER SPECIFIED ANXIETY DISORDERS SNOMED Code(s): 499769049 Plan: Pt progressed thorough hospital course without significant complications. Hyponatremia and rash are currently treated/resolved. Patient is status post his first cycle of Ruxience biosimilar and Treanda for lymphoma. Patient had fever, joint pains and rash. This can be associated with tumor lysis syndrome/serum sickness from monoclonal antibody. TLS labs negative. Resolution of rash rather quickly after initiation of treatment with steroids and benadryl. Monoclonal antibody therapy changed, orders sent for the same. Prednisone taper sent to pt pharmacy Patient has been hospitalized in the past with hyponatremia. Recurrent. SIADH 2/2 lymphoma. Would anticipate improvement as lymphoma is treated. Nephrology following and adjusting medications to improve Na+ levels to an acceptable level, not necessarily normal, but adequate so pt is not symptomatic. Plans for close monitoring of Na+, cont pt on NaCl tabs per Nephrology with adjustments as necessary based on NA+ levels. No further nausea reported Anxiety medications adjusted. New Rx sent from office
== END 2022-10-11 12:42 | disposition home or self-care (01) | DRG 644 ==
LOC: EC 17:37 → 3SCARD 21:07
PROVIDERS: ADMIT Family Medicine; ATTEND Family Medicine
DX: E22.2 Syndrome of inappropriate secretion of antidiuretic hormone (principal); C81.90 Hodgkin lymphoma, unspecified, unspecified site; E87.20 Acidosis, unspecified; M48.56XA Collapsed vertebra, not elsewhere classified, lumbar region, initial encounter for fracture; Z20.822 Contact with and (suspected) exposure to COVID-19; Z28.310 Unvaccinated for COVID-19; E87.5 Hyperkalemia; E86.1 Hypovolemia; R73.9 Hyperglycemia, unspecified; G47.00 Insomnia, unspecified; F41.9 Anxiety disorder, unspecified; R21 Rash and other nonspecific skin eruption; R50.9 Fever, unspecified; F17.200 Nicotine dependence, unspecified, uncomplicated; Z71.6 Tobacco abuse counseling; Z79.899 Other long term (current) drug therapy; W19.XXXA Unspecified fall, initial encounter; Z80.7 Family history of other malignant neoplasms of lymphoid, hematopoietic and related tissues
CPT/HCPCS: 36415; 71046; 80048; 80053; 81001; 82533; 83605; 83735; 83930; 83935; 84100; 84295; 84300; 84443; 84550; 85025; 85027; 85610; 85730; 87040; 87502; 87635; 93005; 94760; 96361; 96365; 96366; 96375; 99285

== ENCOUNTER 2022-10-16 16:29 | Inpatient (IN) | payer OTHER ==
[2022-10-16] MEDS ORDERED: SODIUM CHLORIDE 0.9% 1,000 ML IV STA (18:19)
[2022-10-16] MEDS ORDERED: traMADol 50 MG TAB PO STA (18:20)
--- NOTE | 2022-10-16 18:25 | ED ---
General Adult HPI - General Chief complaint: Recheck/Abnormal Lab/Rx Stated complaint: sodium low Time Seen by Provider: 10/16/22 18:11 Source: patient, RN notes reviewed Mode of arrival: ambulatory Limitations: no limitations - History of Present Illness Initial comments: This is a pleasant 62-year-old male who comes to the ER complaining of generalized weakness, body aches, tingling in both hands and both feet. Patient states he has had these symptoms several times over the past few weeks. Patient was admitted for hyponatremia with a sodium of less than 120. Patient currently on fluid restriction and sodium chloride supplementation. Patient states he had a sodium rechecked on and was 129. However he states he started feeling bad again on Tuesday. No known fever. Patient did have a skin rash after receiving chemotherapy 2 weeks ago which is now resolved. Been on corticosteroids after having a skin rash. He states that he feels like since he been on the steroids he is getting some tingling in his fingers and toes on both sides. He has no focal deficits. Patient states he also has a scratchy sensation in his throat. Patient states he also had that previously with hyponatremia. Patient has a recent diagnosis of Waldenstrm's macroglobulinemia. Patient due for chemotherapy again next week. Taser going to change the chemotherapeutic agent due to the reaction had the first time. Patient seeing Dr. Wesley. BODY aches, No headache, no fever or chills, no changes in vision or hearing, no sore throat or difficulty with speech, no neck pain, no chest pain or shortness of breath, no abdominal pain, no nausea or vomiting, no changes in urination or bowel movements, , no extremity pain, no skin rashes or lesions. Past medical, surgical, social, and family history reviewed. - Related Data Home Medications Medication Instructions Recorded Confirmed ALPRAZolam [Xanax] 0.25 mg PO BID PRN 10/06/22 10/16/22 Acetaminophen [Tylenol Extra 500 - 1,000 mg PO Q6H PRN 10/06/22 10/16/22 Strength] Ascorbic Acid [Vitamin C] 500 mg PO DAILY 10/06/22 10/16/22 Cholecalciferol [Vitamin D3 (25 25 mcg PO DAILY 10/06/22 10/16/22 Mcg = 1000 Iu)] Ferrous Sulfate [Feosol] 325 mg PO DAILY 10/06/22 10/16/22 Mirtazapine [Remeron] 30 mg PO HS 10/06/22 10/16/22 Nicotine 21Mg/24Hr Patch [Habitrol] 1 patch TRANSDERM DAILY PRN 10/06/22 10/16/22 Ondansetron Odt [Zofran ODT] 4 mg PO Q4H PRN 10/06/22 10/16/22 Pantoprazole Sodium [Protonix] 40 mg PO DAILY 10/06/22 10/16/22 Sennosides [Senokot] 8.6 mg PO HS PRN 10/06/22 10/16/22 Zinc Gluconate [Zinc] 50 mg PO DAILY 10/06/22 10/16/22 allopurinoL [Zyloprim] 200 mg PO DAILY 10/06/22 10/16/22 Sodium Chloride Tab 1 gm PO Q48H 10/16/22 10/16/22 Allergies Allergy/AdvReac Type Severity Reaction Status Date / Time No Known Allergies Allergy Verified 10/16/22 20:40 Review of Systems ROS Statement: Those systems with pertinent positive or pertinent negative responses have been documented in the HPI. ROS Other: All systems not noted in ROS Statement are negative. Past Medical History Past Medical History: Cancer Additional Past Medical History / Comment(s): WM lymphoma, shingles History of Any Multi-Drug Resistant Organisms: None Reported Past Surgical History: Appendectomy Past Anesthesia/Blood Transfusion Reactions: No Reported Reaction Past Psychological History: No Psychological Hx Reported Smoking Status: Current every day smoker, Current some day smoker Past Alcohol Use History: None Reported Past Drug Use History: Marijuana - Past Family History Father Family Medical History: Cancer, Prostate Disorder Additional Family Medical History / Comment(s): prostate cancer Mother Family Medical History: Cancer Additional Family Medical History / Comment(s): lung cancer to the brain Brother(s) Family Medical History: Cancer General Exam - General Exam Comments Initial Comments: Patient does not appear to be ill or toxic. Mildly tachycardic. Appears to be adequately perfused. Capillary refill less than 2 seconds. No mottling. Vital signs reviewed. No focal neurologic deficits. Cranial nerves II through XII are intact. Limitations: no limitations General appearance: alert, in no apparent distress, anxious (Mildly anxious appearance) Head exam: Present: atraumatic, normocephalic, normal inspection Eye exam: Present: normal appearance, PERRL, EOMI. Absent: scleral icterus, conjunctival injection, periorbital swelling ENT exam: Present: normal exam, mucous membranes moist Neck exam: Present: normal inspection, full ROM. Absent: tenderness, meningismus, lymphadenopathy Respiratory exam: Present: normal lung sounds bilaterally. Absent: respiratory distress, wheezes, rales, rhonchi, stridor Cardiovascular Exam: Present: regular rate, normal rhythm, normal heart sounds. Absent: systolic murmur, diastolic murmur, rubs, gallop, clicks GI/Abdominal exam: Present: soft, normal bowel sounds. Absent: distended, tenderness, guarding, rebound, rigid Extremities exam: Present: normal inspection, full ROM, normal capillary refill. Absent: tenderness, pedal edema, joint swelling, calf tenderness Back exam: Present: normal inspection, full ROM. Absent: rash noted Neurological exam: Present: alert, oriented X3, CN II-XII intact, normal gait. Absent: abnormal gait, motor sensory deficit, reflexes normal Psychiatric exam: Present: normal affect, normal mood, anxious (Minimal) Skin exam: Present: warm, dry, intact, normal color. Absent: rash Course Vital Signs 10/16/22 10/16/22 10/16/22 16:33 20:00 22:00 Temperature 98.6 F Pulse Rate 114 H 90 87 Respiratory 18 16 16 Rate Blood Pressure 148/97 140/65 124/80 O2 Sat by Pulse 98 98 98 Oximetry - Reevaluation(s) Reevaluation #1: 10/16/22 20:15 Medical record is reviewed Symptoms are unchanged Patient is informed of results and questions answered Patient in no distress The case was discussed in detail with ED attending physician. Presentation, findings, treatment plan discussed in detail. Supervising physician Dr. Cain - Consultations Consultation #1: Case discussed in detail with Dayana from [facility] hospitalist group. Patient admitted to that service. Consultation for oncology and nephrology. EKG Findings - EKG Comments: EKG Findings:: EKG done at 1853 and regular ED attending physician reveals sinus tachycardia with a rate of 101. Normal intervals. Normal axis. No acute ST changes. Patient noted to have an inverted T-wave in lead 3. Some T-wave flattening in V1. When compared to the previous EKG from 10/16/2022 there nonspecific changes. Note that the patient has no chest pain. Patient has previously had some electrolyte disturbance which could be changing morphology. Medical Decision Making - Medical Decision Making Patient was admitted for hyponatremia. This case was discussed in detail with the ED attending physician, Dr. Cain. Case was discussed with [facility] hospitalist group APC. Patient admit alexandria to the group for further evaluation and treatment. - Lab Data Result diagrams: 10/16/22 18:44 10/16/22 18:44 Lab Results 10/16/22 10/16/22 10/16/22 Range/Units 18:44 18:44 18:44 WBC 10.3 (3.8-10.6) k/uL RBC 4.14 L (4.30-5.90) m/uL Hgb 11.3 L (13.0-17.5) gm/dL Hct 33.5 L (39.0-53.0) % MCV 80.8 (80.0-100.0) fL MCH 27.4 (25.0-35.0) pg MCHC 33.9 (31.0-37.0) g/dL RDW 18.4 H (11.5-15.5) % Plt Count 368 (150-450) k/uL MPV 7.6 Neutrophils % 74 % Lymphocytes % 9 % Monocytes % 8 % Eosinophils % 5 % Basophils % 1 % Neutrophils # 7.7 (1.3-7.7) k/uL Lymphocytes # 1.0 (1.0-4.8) k/uL Monocytes # 0.9 (0-1.0) k/uL Eosinophils # 0.5 (0-0.7) k/uL Basophils # 0.1 (0-0.2) k/uL Anisocytosis Slight Microcytosis Slight PT 10.4 (9.0-12.0) sec INR 1.0 (<1.2) APTT 29.4 (22.0-30.0) sec Sodium 121 L (137-145) mmol/L Potassium 5.6 H (3.5-5.1) mmol/L Chloride 88 L (98-107) mmol/L Carbon Dioxide 27 (22-30) mmol/L Anion Gap 6 mmol/L BUN 19 (9-20) mg/dL Creatinine 0.66 (0.66-1.25) mg/dL Est GFR (CKD-EPI)AfAm >90 (>60 ml/min/1.73 sqM) Est GFR (CKD-EPI)NonAf >90 (>60 ml/min/1.73 sqM) Glucose 162 H (74-99) mg/dL Plasma Lactic Acid Ron (0.7-2.0) mmol/L Calcium 9.1 (8.4-10.2) mg/dL Ionized Calcium Kamila 4.6 (4.5-5.3) mg/dL Phosphorus 5.3 H (2.5-4.5) mg/dL Magnesium 2.0 (1.6-2.3) mg/dL Total Bilirubin 0.8 (0.2-1.3) mg/dL AST 30 (17-59) U/L ALT 17 (4-49) U/L Alkaline Phosphatase 92 (38-126) U/L Troponin I (0.000-0.034) ng/mL Total Protein 8.1 (6.3-8.2) g/dL Albumin 4.0 (3.5-5.0) g/dL TSH 2.490 (0.465-4.680) mIU/L Urine Color Urine Appearance (Clear) Urine pH (5.0-8.0) Ur Specific [place] (1.001-1.035) Urine Protein (Negative) Urine Glucose (UA) (Negative) Urine Ketones (Negative) Urine Blood (Negative) Urine Nitrite (Negative) Urine Bilirubin (Negative) Urine Urobilinogen (<2.0) mg/dL Ur Leukocyte Esterase (Negative) Coronavirus (PCR) (Not Detectd) Influenza Type A RNA (Not Detectd) Influenza Type B (PCR) (Not Detectd) 10/16/22 10/16/22 10/16/22 Range/Units 18:44 18:44 18:57 WBC (3.8-10.6) k/uL RBC (4.30-5.90) m/uL Hgb (13.0-17.5) gm/dL Hct (39.0-53.0) % MCV (80.0-100.0) fL MCH (25.0-35.0) pg MCHC (31.0-37.0) g/dL RDW (11.5-15.5) % Plt Count (150-450) k/uL MPV Neutrophils % % Lymphocytes % % Monocytes % % Eosinophils % % Basophils % % Neutrophils # (1.3-7.7) k/uL Lymphocytes # (1.0-4.8) k/uL Monocytes # (0-1.0) k/uL Eosinophils # (0-0.7) k/uL Basophils # (0-0.2) k/uL Anisocytosis Microcytosis PT (9.0-12.0) sec INR (<1.2) APTT (22.0-30.0) sec Sodium (137-145) mmol/L Potassium (3.5-5.1) mmol/L Chloride (98-107) mmol/L Carbon Dioxide (22-30) mmol/L Anion Gap mmol/L BUN (9-20) mg/dL Creatinine (0.66-1.25) mg/dL Est GFR (CKD-EPI)AfAm (>60 ml/min/1.73 sqM) Est GFR (CKD-EPI)NonAf (>60 ml/min/1.73 sqM) Glucose (74-99) mg/dL Plasma Lactic Acid Ron 1.2 (0.7-2.0) mmol/L Calcium (8.4-10.2) mg/dL Ionized Calcium Kamila (4.5-5.3) mg/dL Phosphorus (2.5-4.5) mg/dL Magnesium (1.6-2.3) mg/dL Total Bilirubin (0.2-1.3) mg/dL AST (17-59) U/L ALT (4-49) U/L Alkaline Phosphatase (38-126) U/L Troponin I <0.012 (0.000-0.034) ng/mL Total Protein (6.3-8.2) g/dL Albumin (3.5-5.0) g/dL TSH (0.465-4.680) mIU/L Urine Color Urine Appearance (Clear) Urine pH (5.0-8.0) Ur Specific [place] (1.001-1.035) Urine Protein (Negative) Urine Glucose (UA) (Negative) Urine Ketones (Negative) Urine Blood (Negative) Urine Nitrite (Negative) Urine Bilirubin (Negative) Urine Urobilinogen (<2.0) mg/dL Ur Leukocyte Esterase (Negative) Coronavirus (PCR) (Not Detectd) Influenza Type A RNA Not Detected (Not Detectd) Influenza Type B (PCR) Not Detected (Not Detectd) 10/16/22 10/16/22 Range/Units 18:57 19:16 WBC (3.8-10.6) k/uL RBC (4.30-5.90) m/uL Hgb (13.0-17.5) gm/dL Hct (39.0-53.0) % MCV (80.0-100.0) fL MCH (25.0-35.0) pg MCHC (31.0-37.0) g/dL RDW (11.5-15.5) % Plt Count (150-450) k/uL MPV Neutrophils % % Lymphocytes % % Monocytes % % Eosinophils % % Basophils % % Neutrophils # (1.3-7.7) k/uL Lymphocytes # (1.0-4.8) k/uL Monocytes # (0-1.0) k/uL Eosinophils # (0-0.7) k/uL Basophils # (0-0.2) k/uL Anisocytosis Microcytosis PT (9.0-12.0) sec INR (<1.2) APTT (22.0-30.0) sec Sodium (137-145) mmol/L Potassium (3.5-5.1) mmol/L Chloride (98-107) mmol/L Carbon Dioxide (22-30) mmol/L Anion Gap mmol/L BUN (9-20) mg/dL Creatinine (0.66-1.25) mg/dL Est GFR (CKD-EPI)AfAm (>60 ml/min/1.73 sqM) Est GFR (CKD-EPI)NonAf (>60 ml/min/1.73 sqM) Glucose (74-99) mg/dL Plasma Lactic Acid Ron (0.7-2.0) mmol/L Calcium (8.4-10.2) mg/dL Ionized Calcium Kamila (4.5-5.3) mg/dL Phosphorus (2.5-4.5) mg/dL Magnesium (1.6-2.3) mg/dL Total Bilirubin (0.2-1.3) mg/dL AST (17-59) U/L ALT (4-49) U/L Alkaline Phosphatase (38-126) U/L Troponin I (0.000-0.034) ng/mL Total Protein (6.3-8.2) g/dL Albumin (3.5-5.0) g/dL TSH (0.465-4.680) mIU/L Urine Color Colorless Urine Appearance Clear (Clear) Urine pH 6.5 (5.0-8.0) Ur Specific [place] 1.008 (1.001-1.035) Urine Protein Negative (Negative) Urine Glucose (UA) Negative (Negative) Urine Ketones Negative (Negative) Urine Blood Negative (Negative) Urine Nitrite Negative (Negative) Urine Bilirubin Negative (Negative) Urine Urobilinogen <2.0 (<2.0) mg/dL Ur Leukocyte Esterase Negative (Negative) Coronavirus (PCR) Not Detected (Not Detectd) Influenza Type A RNA (Not Detectd) Influenza Type B (PCR) (Not Detectd) Disposition Clinical Impression: Hyponatremia Disposition: ADMITTED IP TO THIS [facility] Condition: Fair Time of Disposition: 19:47 Decision to Admit Reason: Admit from EC Decision Time: 19:47
[2022-10-16 19:02] LABS: Anisocytosis Slight; Basophils # (A) 0.1 k/uL (0-0.2); Basophils % (A) 1 %; Eosinophils # (A) 0.5 k/uL (0-0.7); Eosinophils % (A) 5 %; HCT 33.5 % (39.0-53.0); HGB 11.3 gm/dL (13.0-17.5); Lymphocytes % (A) 9 %; MCH 27.4 pg (25.0-35.0); MCHC 33.9 g/dL (31.0-37.0); MCV 80.8 fL (80.0-100.0); Mean Platelet Volume 7.6; Microcytosis Slight; Monocytes # (A) 0.9 k/uL (0-1.0); Monocytes % (A) 8 %; Neutrophils # (A) 7.7 k/uL (1.3-7.7); Neutrophils % (A) 74 %; Platelet Count 368 k/uL (150-450); RBC 4.14 m/uL (4.30-5.90); RDW 18.4 % (11.5-15.5); WBC 10.3 k/uL (3.8-10.6)
[2022-10-16 19:09] LABS: Ionized Calcium 4.6 mg/dL (4.5-5.3)
[2022-10-16 19:11] LABS: Partial Thromboplastin Time 29.4 sec (22.0-30.0); Prothrombin Time 10.4 sec (9.0-12.0)
--- NOTE | 2022-10-16 19:18 | XR ---
EXAMINATION TYPE: XR chest 1V portable DATE OF EXAM: 10/16/2022 COMPARISON: NONE HISTORY: Nausea and vomiting TECHNIQUE: Single view FINDINGS: Heart is normal. Lungs are clear of infiltrate. No heart failure. There are no hilar masses . Bony thorax is intact. IMPRESSION: Normal chest.
[2022-10-16 19:23] LABS: ALT 17 U/L (4-49); AST 30 U/L (17-59); African American GFR (CKD) >90 (>60 ml/min/1.73 sqM); Alkaline Phosphatase 92 U/L (38-126); Anion Gap 6 mmol/L; Blood Urea Nitrogen 19 mg/dL (9-20); Calcium 9.1 mg/dL (8.4-10.2); Carbon Dioxide 27 mmol/L (22-30); Chloride 88 mmol/L (98-107); Glucose 162 mg/dL (74-99); Non-African American GFR(CKD) >90 (>60 ml/min/1.73 sqM); Phosphorus 5.3 mg/dL (2.5-4.5); Sodium 121 mmol/L (137-145); Total Bilirubin 0.8 mg/dL (0.2-1.3); Total Protein 8.1 g/dL (6.3-8.2)
[2022-10-16 19:26] LABS: Potassium 5.6 mmol/L (3.5-5.1)
[2022-10-16 19:42] LABS: Appearance,Urine Clear (Clear); Bilirubin,Urine Negative (Negative); Blood,Urine Negative (Negative); Color,Urine Colorless; Glucose,Urine (UA) Negative (Negative); Ketones,Urine Negative (Negative); Leukocyte Esterase,Urine Negative (Negative); Nitrite,Urine Negative (Negative); PH, Urine 6.5 (5.0-8.0); Protein,Urine Negative (Negative); Specific Gravity,Urine 1.008 (1.001-1.035); Urobilinogen,Urine <2.0 mg/dL (<2.0)
[2022-10-16] MEDS ORDERED: NALOXONE 0.4 MG/ML 1 ML VIAL IV PRN (19:55)
[2022-10-16] MEDS ORDERED: ACETAMINOPHEN TAB 325 MG TAB PO PRN (19:55)
[2022-10-16] MEDS ORDERED: ONDANSETRON 4 MG/2 ML VIAL IVP PRN (19:55)
[2022-10-17] MEDS: traMADol 50 MG TAB PO PRN ×3 (00:02→14:06)
[2022-10-17] MEDS: SODIUM CHLORIDE 0.9% 1,000 ML IV SCH ×2 (00:04→10:52)
[2022-10-17] MEDS: HEPARIN SODIUM,PORCINE/PF 5,000 UNIT/0.5 ML SYRINGE SQ SCH ×3 (00:04→14:04)
[2022-10-17 09:57] LABS: HGB 10.7 g/dL (13.0-17.0); MCH 26.4 pg (27.0-32.0); MCHC 32.4 g/dL (32.0-37.0); MCV 81.5 fL (80.0-97.0); Mean Platelet Volume 9.1 fL (9.5-12.2); NRBC Per 100 WBC 0 /100 WBCS (0.0-0.0); Platelet Count 322 X 10*3/uL (140-440); RBC 4.05 X 10*6/uL (4.40-5.60); RDW 20.4 % (11.5-14.5); WBC 7.35 X 10*3/uL (4.50-10.00)
--- NOTE | 2022-10-17 10:02 | P.NPCON ---
History of Present Illness - Reason for Consult hyponatremia - History of Present Illness Reason for consultation: Hyponatremia History of present illness: Patient is a 62-year-old male seen in consultation for hyponatremia. Patient's sodium level was 121 on 10/16/2022 6:44 PM. No labs since. Patient has history of lymphoma and last received chemotherapy 2 weeks ago. Patient states his oral intake has been fair. He does admit to drinking about 5 glasses of milk daily, 2 cups of coffee daily, body armor as well as water. He denies vomiting or diarrhea. No edema. No chest pain or shortness of breath. Denies use of diuretics. Patient states he was initially taking sodium chloride tab on a d aily basis but was told to cut it down to every other day. No chest pain or shortness of breath. No history of diabetes. Has been voiding. No hematuria. Currently on normal saline at 75 mL an hour. Morning labs are pending. Vital signs are stable. General: Awake. No acute distress. HEENT: Head exam is unremarkable. LUNGS: Breath sounds decreased. HEART: Rate and Rhythm are regular. ABDOMEN: Soft, no distention. EXTREMITITES: No edema. Past Medical History Past Medical History: Cancer Additional Past Medical History / Comment(s): WM lymphoma, shingles History of Any Multi-Drug Resistant Organisms: None Reported Past Surgical History: Appendectomy Past Anesthesia/Blood Transfusion Reactions: No Reported Reaction Past Psychological History: No Psychological Hx Reported Smoking Status: Current every day smoker, Current some day smoker Past Alcohol Use History: None Reported Past Drug Use History: Marijuana - Past Family History Father Family Medical History: Cancer, Prostate Disorder Additional Family Medical History / Comment(s): prostate cancer Mother Family Medical History: Cancer Additional Family Medical History / Comment(s): lung cancer to the brain Brother(s) Family Medical History: Cancer Medications and Allergies Home Medications Medication Instructions Recorded Confirmed Type ALPRAZolam [Xanax] 0.25 mg PO BID PRN 10/06/22 10/16/22 History Acetaminophen [Tylenol Extra 500 - 1,000 mg PO Q6H PRN 10/06/22 10/16/22 History Strength] Ascorbic Acid [Vitamin C] 500 mg PO DAILY 10/06/22 10/16/22 History Cholecalciferol [Vitamin D3 (25 25 mcg PO DAILY 10/06/22 10/16/22 History Mcg = 1000 Iu)] Ferrous Sulfate [Feosol] 325 mg PO DAILY 10/06/22 10/16/22 History Mirtazapine [Remeron] 30 mg PO HS 10/06/22 10/16/22 History Nicotine 21Mg/24Hr Patch [Habitrol] 1 patch TRANSDERM DAILY PRN 10/06/22 10/16/22 History Ondansetron Odt [Zofran ODT] 4 mg PO Q4H PRN 10/06/22 10/16/22 History Pantoprazole Sodium [Protonix] 40 mg PO DAILY 10/06/22 10/16/22 History Sennosides [Senokot] 8.6 mg PO HS PRN 10/06/22 10/16/22 History Zinc Gluconate [Zinc] 50 mg PO DAILY 10/06/22 10/16/22 History allopurinoL [Zyloprim] 200 mg PO DAILY 10/06/22 10/16/22 History Sodium Chloride Tab 1 gm PO Q48H 10/16/22 10/16/22 History Allergies Allergy/AdvReac Type Severity Reaction Status Date / Time No Known Allergies Allergy Verified 10/16/22 20:40 Physical Exam Vitals: Vital Signs Temp Pulse Pulse Pulse Resp BP BP 10/17/22 04:17 98.6 F 86 16 120/70 10/16/22 23:00 98.4 F 119 H 16 149/81 10/16/22 22:00 87 16 124/80 10/16/22 20:00 90 16 140/65 10/16/22 16:33 98.6 F 114 H 18 148/97 Pulse Ox 10/17/22 04:17 97 10/16/22 23:00 97 10/16/22 22:00 98 10/16/22 20:00 98 10/16/22 16:33 98 Intake and Output 10/16/22 10/17/22 10/17/22 22:59 06:59 14:59 Intake Total 840 Balance 840 Intake: Oral 840 Other: Voiding Method Toilet Weight 65.771 kg Results - Lab Results Most recent lab results Calcium 9.1 mg/dL (8.4-10.2) 10/16/22 18:44 Phosphorus 5.3 mg/dL (2.5-4.5) H 10/16/22 18:44 Magnesium 2.0 mg/dL (1.6-2.3) 10/16/22 18:44 10/16/22 18:44 10/16/22 18:44 Assessment and Plan Plan: Assessment: 1. Hypovolemic hyponatremia with component of poor solute intake and excessive fluid intake. Also concern for underlying SIADH from malignancy. Sodium level 121 on admission. TSH normal. Cortisol dated 10/08/2022 was within range. 2. Lymphoma. States last chemotherapy was about 2 weeks ago. Plan: Maintain normal saline for now. Check serum and urine osmolality and urine sodium level. Maintain fluid restriction. Follow-up morning labs. Discussed with patient in detail to follow 40 ounce fluid restriction per day upon discharge along with increased protein intake. Thank you for the consultation. I will continue to follow the patient with you during his hospital stay.
[2022-10-17 10:15] LABS: African American GFR (CKD) 112.5 (60.0-200.0); Albumin 3.6 g/dL (3.8-4.9); Albumin/Globulin Ratio 1.06 (1.60-3.17); Anion Gap 11.1 mmol/L (10.00-18.00); BUN/Creat Ratio 21.38 Ratio (12.00-20.00); Blood Urea Nitrogen 17.1 mg/dL (9.0-27.0); Calcium 9.5 mg/dL (8.7-10.3); Carbon Dioxide 25.9 mmol/L (20.0-27.5); Globulin 3.4 g/dL (1.6-3.3); Magnesium 2.3 mg/dL (1.5-2.4); Non-African American GFR(CKD) 97.1 (60.0-200.0); Phosphorus 5.1 mg/dL (2.4-5.1); Potassium 4.7 mmol/L (3.5-5.5); Total Bilirubin 0.4 mg/dL (0.30-1.20)
[2022-10-17] MEDS ORDERED: SODIUM CHLORIDE 0.9% 1,000 ML IV SCH (11:00)
[2022-10-17 11:12] LABS: Basophils # (M) 0.22 X 10*3/uL (0.00-0.10); Eosinophils # (M) 0.59 X 10*3/uL (0.04-0.35); Lymphocytes # (M) 1.47 X 10*3/uL (0.90-5.00); Monocytes # (M) 0.81 X 10*3/uL (0.20-1.00); Neutrophils # (M) 4.26 X 10*3/uL (2.00-8.90); Neutrophils % (M) 58 %; RBC Morphology NORMAL
--- NOTE | 2022-10-17 11:46 | P.CONS ---
History of Present Illness - Reason for Consult Consult date: 10/17/22 Hyponatremia, NHL - History of Present Illness Mr Cisneros is a pleasant male patient of Dr. Wesley, initially seen in consult [facility] [place], [place] 07/27/22. Resented with complaints of pain in the bilateral lower extremities, progressive over the last month. Evaluation revealed sodium 122, hemoglobin 8.3 with a low MCV. Exam revealed palpable lymph node in the right supraclavicular area. There was a family history of lymphoma. X-rays of the lumbar spine, hips revealed compression fracture at L5. CT CAP showed a 1.9 cm pretracheal lymph node, as well as multiple enlarged periaortic lymph node measuring up to 3 cm. There is some encasement of the aorta. Multiple bilateral palpable inguinal nodes, up to 1.5 cm were also seen. CT of the soft tissue of the neck showed mediastinal, as well as anterior and posterior triangle cervical adenopathy, with submandibular adenopathy. Excisional biopsy of the right lower cervical lymph node and subsequently discharged. He has had additional admissions as for weakness, low sodium, prolonged insomnia , anxiety, as well as mental status changes. The mental status changes actually resolved with treatment of anxiety and insomnia. 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 Flow cytometry showed similar results. Bone scan, and MRI of the brain were negative. FISH study showed CCN D1/11 q, but no evidence of CCN D1/IGH , IGH/BCL-2, or MART 1 translocations. 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 As this was suspicious for mantle cell lymphoma, but not definitive, given the absence of specific translocations, pathology was sent to [facility] for consultation. He was started on pulse Decadron 40 mg, 4 days on and 4 days off. He had 4 courses of the same. After consult from the [facility], mantle cell lymphoma was felt to be ruled out. The patient's labs had also shown significant IgM monoclonal gammopathy. 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 He was seen for his first office visit on 09/09/22. He received his first dose of treatment with Bendamustine and Rituximab 2 weeks ago. The patient was admitted to the hospital on 10/16/22 with hyponatremia, dehydration and fever. Infection workup was negative. The patient was discharged with treatment for hyponatremia. He has been having issues with the same since presentation. With other causes not evident, a paraneoplastic phenomenon is felt to be more likely. The patient states that he started feeling nauseous, with progressive weakness and decreased appetite over the past 2-3 days. The sodium level declined to 120 due to which she came back to the emergency room, and was admitted for further management. The case was discussed in detail with nephrology who have evaluated the patient. The patient was previously taking salt tablets, but has been taking them every other day over the past couple of weeks. He states that he is doing so because he was told by some physician but does not recall which one. Per nephrology he has also been taking larger than recommended amount of fluids, which is likely the main contributing factor. Review of Systems Constitutional: Reports chronic pain, Reports poor appetite, Reports weakness Eyes: denies blurred vision, denies pain Ears: deny: decreased hearing, ear discharge, earache, tinnitus Ears, nose, mouth and throat: Denies headache, Denies sore throat Cardiovascular: Denies chest pain, Denies shortness of breath Respiratory: Denies cough Gastrointestinal: Reports nausea Genitourinary: Reports as per HPI Musculoskeletal: Reports muscle weakness Integumentary: Denies pruritus, Denies rash Neurological: Reports weakness Psychiatric: Denies anxiety, Denies depression Endocrine: Reports fatigue Hematologic/Lymphatic: Reports as per HPI Past Medical History Past Medical History: Cancer Additional Past Medical History / Comment(s): WM lymphoma, shingles History of Any Multi-Drug Resistant Organisms: None Reported Past Surgical History: Appendectomy Past Anesthesia/Blood Transfusion Reactions: No Reported Reaction Past Psychological History: No Psychological Hx Reported Smoking Status: Current every day smoker, Current some day smoker Past Alcohol Use History: None Reported Past Drug Use History: Marijuana - Past Family History Father Family Medical History: Cancer, Prostate Disorder Additional Family Medical History / Comment(s): prostate cancer Mother Family Medical History: Cancer Additional Family Medical History / Comment(s): lung cancer to the brain Brother(s) Family Medical History: Cancer Medications and Allergies Home Medications Medication Instructions Recorded Confirmed Type ALPRAZolam [Xanax] 0.25 mg PO BID PRN 10/06/22 10/16/22 History Acetaminophen [Tylenol Extra 500 - 1,000 mg PO Q6H PRN 10/06/22 10/16/22 History Strength] Ascorbic Acid [Vitamin C] 500 mg PO DAILY 10/06/22 10/16/22 History Cholecalciferol [Vitamin D3 (25 25 mcg PO DAILY 10/06/22 10/16/22 History Mcg = 1000 Iu)] Ferrous Sulfate [Feosol] 325 mg PO DAILY 10/06/22 10/16/22 History Mirtazapine [Remeron] 30 mg PO HS 10/06/22 10/16/22 History Nicotine 21Mg/24Hr Patch [Habitrol] 1 patch TRANSDERM DAILY PRN 10/06/22 10/16/22 History Ondansetron Odt [Zofran ODT] 4 mg PO Q4H PRN 10/06/22 10/16/22 History Pantoprazole Sodium [Protonix] 40 mg PO DAILY 10/06/22 10/16/22 History Sennosides [Senokot] 8.6 mg PO HS PRN 10/06/22 10/16/22 History Zinc Gluconate [Zinc] 50 mg PO DAILY 10/06/22 10/16/22 History allopurinoL [Zyloprim] 200 mg PO DAILY 10/06/22 10/16/22 History Sodium Chloride Tab 1 gm PO Q48H 10/16/22 10/16/22 History Allergies Allergy/AdvReac Type Severity Reaction Status Date / Time No Known Allergies Allergy Verified 10/16/22 20:40 Physical Exam Vitals: Vital Signs Temp Pulse Pulse Pulse Resp BP BP 10/17/22 08:45 86 119 H 16 10/17/22 04:17 98.6 F 86 16 120/70 10/16/22 23:00 98.4 F 119 H 16 149/81 10/16/22 22:00 87 16 124/80 10/16/22 20:00 90 16 140/65 10/16/22 16:33 98.6 F 114 H 18 148/97 Pulse Ox 10/17/22 08:45 10/17/22 04:17 97 10/16/22 23:00 97 10/16/22 22:00 98 10/16/22 20:00 98 10/16/22 16:33 98 Intake and Output 10/16/22 10/17/22 10/17/22 22:59 06:59 14:59 Intake Total 840 Balance 840 Intake: Oral 840 Other: Voiding Method Toilet Toilet Weight 65.771 kg - Constitutional General appearance: no acute distress - EENT Eyes: EOMI, PERRLA ENT: hearing grossly normal, normal oropharynx - Neck Neck: lymphadenopathy (Palpable nodes bilateral supraclavicular, left-sided 2 cm, 2-3 on right largest of 1.5 cm. Less distinct and softer than before. 7-8 mm node right upper axilla) Thyroid: bilateral: normal size - Respiratory Respiratory: bilateral: CTA - Cardiovascular Rhythm: regular Heart sounds: normal: S1, S2 - Gastrointestinal General gastrointestinal: normal bowel sounds, soft - Integumentary Integumentary: normal - Neurologic Neurologic: CNII-XII intact - Musculoskeletal Musculoskeletal: generalized weakness, strength equal bilaterally - Psychiatric Psychiatric: A&O x's 3, appropriate affect Results CBC & Chem 7: 10/17/22 06:29 10/17/22 06:36 Labs: Abnormal Lab Results - Last 24 Hours (Table) 10/16/22 10/16/22 10/17/22 Range/Units 18:44 18:44 06:29 RBC 4.14 L 4.05 L (4.30-5.90) m/uL Hgb 11.3 L 10.7 L (13.0-17.5) gm/dL Hct 33.5 L 33.0 L (39.0-53.0) % MCH 26.4 L (27.0-32.0) pg RDW 18.4 H 20.4 H (11.5-15.5) % MPV 9.1 L (9.5-12.2) fL Eosinophils # (Manual) 0.59 H (0.04-0.35) X 10*3/uL Basophils # (Manual) 0.22 H (0.00-0.10) X 10*3/uL Sodium 121 L (137-145) mmol/L Potassium 5.6 H (3.5-5.1) mmol/L Chloride 88 L (98-107) mmol/L BUN/Creatinine Ratio (12.00-20.00) Ratio Glucose 162 H (74-99) mg/dL Osmolality (280-301) mosm/kg Phosphorus 5.3 H (2.5-4.5) mg/dL AST (14-35) U/L Albumin (3.8-4.9) g/dL Globulin (1.6-3.3) g/dL Albumin/Globulin Ratio (1.60-3.17) g/dL 10/17/22 10/17/22 Range/Units 06:36 10:35 RBC (4.30-5.90) m/uL Hgb (13.0-17.5) gm/dL Hct (39.0-53.0) % MCH (27.0-32.0) pg RDW (11.5-15.5) % MPV (9.5-12.2) fL Eosinophils # (Manual) (0.04-0.35) X 10*3/uL Basophils # (Manual) (0.00-0.10) X 10*3/uL Sodium 127 L (137-145) mmol/L Potassium (3.5-5.1) mmol/L Chloride 90 L (98-107) mmol/L BUN/Creatinine Ratio 21.38 H (12.00-20.00) Ratio Glucose (74-99) mg/dL Osmolality 270 L (280-301) mosm/kg Phosphorus (2.5-4.5) mg/dL AST 11 L (14-35) U/L Albumin 3.6 L (3.8-4.9) g/dL Globulin 3.4 H (1.6-3.3) g/dL Albumin/Globulin Ratio 1.06 L (1.60-3.17) g/dL Comments: EKG imaging reviewed. Sinus tachycardia Chest x-ray: report reviewed Assessment and Plan (1) Hyponatremia Narrative/Plan: this was the patient's main presenting complaint, he did have associated symptoms that is not clear if these were due to hyponatremia or if these caused it. - Case discussed in detail with nephrology. 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 The patient was having nausea and decreased appetite for 2-3 days leading up to this admission. His sodium has improved with normal saline, indicating more of a hypovolemic hyponatremia. The patient has actually remained comparatively well compensated for the degree of hyponatremia. - The patient was intensively counseled by nephrology regarding proper oral intake. As noted, he has been taking excessive amounts of fluids and not enough solids. Nephrology will also place him on salt tablets on a regular basis, and may consider Samsca or Declomycin if these measures are not affective. - As a paraneoplastic phenomenon is felt to be likely, we also would anticipate improvement, once the patient achieves more of remission with ongoing treatment Current Visit: Yes Status: Acute Priority: High Code(s): E87.1 - HYPO- OSMOLALITY AND HYPONATREMIA SNOMED Code(s): 24863799 (2) Lymphoma Narrative/Plan: Most likely [place] prolonged anemia/lymphoblastic lymphoma. The patient has had his first cycle of treatment, with the next given about 2 weeks. He had a possible reaction to rituximab, and the plan is to change his immunotherapy for cycle 2. Counts are satisfactory. Continue to monitor Current Visit: No Status: Acute Priority: High Code(s): C85.90 - NON- HODGKIN LYMPHOMA, UNSPECIFIED, UNSPECIFIED SITE SNOMED Code(s): 733984244
[2022-10-17] MEDS ORDERED: SENNOSIDES 8.6 MG TAB PO PRN (13:52)
[2022-10-17] MEDS ORDERED: ACETAMINOPHEN TAB 500 MG TAB PO PRN (13:52)
[2022-10-17] MEDS ORDERED: NICOTINE 21MG/24HR PATCH TRANSDERM PRN (13:52)
[2022-10-17] MEDS ORDERED: SODIUM CHLORIDE TAB 1 GM TAB PO SCH (14:00)
--- NOTE | 2022-10-17 20:07 | HP ---
HISTORY AND PHYSICAL CHIEF COMPLAINTS: Weakness and hyponatremia. HISTORY OF PRESENT ILLNESS: This 62-year-old gentleman with a past medical history of multiple medical problems, including lymphoma is complaining of some weakness. The patient came to the [facility], was found to have a sodium of 121 and the patient was admitted for further evaluation and treatment. The patient apparently taking excessive fluids, the possibility of hypervolemia as well as reduced solute intake was also considered by Nephrology. SIADH is also a possibility. There is no history of any fever, rigors, or chills. PAST MEDICAL HISTORY: Reviewed include lymphoma. The rest of the history and the chart is reviewed. HOME MEDICATIONS: Reviewed include zyloprim. Dose and rest of the medication reviewed. ALLERGIES: None. FAMILY HISTORY: History of prostate disorder. SOCIAL HISTORY: History of smoking, THC. REVIEW OF SYSTEMS: A 14-point review of systems is negative except as mentioned earlier. PHYSICAL EXAMINATION: VITAL SIGNS: Pulse is 86, blood pressure 120/70, respirations 16. HEENT: Conjunctivae normal. Oral mucosa moist. NECK: No jugular venous distention. CARDIOVASCULAR: S1, S2 muffled. RESPIRATIONS: Clear to auscultation. ABDOMEN: Soft, nontender. LEGS: No edema. NERVOUS SYSTEM: No focal deficits. SKIN: No ulcer, rash, bleeding. JOINTS: No active deforming arthropathy. LABS: Reviewed as mentioned earlier. The rest of the labs are reviewed. ASSESSMENT: 1. Hyponatremia, possibly hypervolemic as well as reduced solute intake, rule out syndrome of inappropriate secretion of antidiuretic hormone. 2. History of lymphoma. 3. Multiple medical issues. RECOMMENDATIONS AND DISCUSSION: This 62-year-old gentleman who presented with multiple complex medical issues. Fluid restriction has been recommended at this time. Otherwise, we will repeat the labs tomorrow. Closely follow with Dr. Pantoja. Dietary modifications as suggested and discussed with the patient and Dr. Larson will follow tomorrow. MMODL / IJN: [id number] /
[2022-10-17] MEDS: MIRTAZAPINE 15 MG TAB PO SCH (20:31)
[2022-10-17] MEDS: ALPRAZolam 0.25 MG TAB PO PRN (22:13)
[2022-10-18] MEDS: HEPARIN SODIUM,PORCINE/PF 5,000 UNIT/0.5 ML SYRINGE SQ SCH ×4 (00:09→15:14)
[2022-10-18] MEDS: FERROUS SULFATE 325 MG TAB PO SCH (08:47)
[2022-10-18] MEDS: traMADol 50 MG TAB PO PRN ×2 (08:48→16:22)
[2022-10-18] MEDS: PANTOPRAZOLE 40 MG TABLET PO SCH (08:48)
[2022-10-18] MEDS: ASCORBIC ACID 500 MG TAB PO SCH (08:48)
[2022-10-18] MEDS: CHOLECALCIFEROL 25 MCG (1000 IU) TABLET PO SCH (08:48)
[2022-10-18] MEDS: allopurinoL 100 MG TAB PO SCH (08:48)
[2022-10-18] MEDS: NON FORMULARY DRUG (Zinc Gluconate 50 MG Tab) PO SCH (08:51)
--- NOTE | 2022-10-18 08:56 | P.PN ---
Subjective Progress Note Date: 10/18/22 Principal diagnosis: Weakness, hyponatremia This is a 62-year-old male who presented to the emergency room with weakness. Sodium was low upon admission. Labs still pending today. Sodium was up to 127 yesterday. Patient recently in the hospital for same symptoms, and was disch arged on sodium 1 tablet every other day. Patient was seen in our office last and sodium was 129. Patient lying comfortably in bed. No current complaints. Nephrology and oncology are consult. He does have a history of lymphoma and is currently undergoing treatments. Objective - Vital Signs Vital signs: Vital Signs Temp 97.6 F 10/18/22 04:18 Pulse 106 H 10/18/22 04:18 Resp 14 10/18/22 04:18 BP 99/61 10/18/22 04:18 Pulse Ox 97 10/18/22 04:18 FiO2 Intake & Output 10/17/22 10/18/22 10/18/22 18:59 06:59 18:59 Intake Total 600 480 Balance 600 480 Intake: Oral 600 480 Other: Voiding Method Toilet Toilet # Voids 4 - Constitutional General appearance: Present: cooperative. Absent: no acute distress - EENT Eyes: Present: EOMI, PERRLA - Neck Neck: Present: normal ROM. Absent: rigidity - Respiratory Respiratory: bilateral: CTA - Cardiovascular Rhythm: regular Heart sounds: normal: S1, S2 - Gastrointestinal General gastrointestinal: Present: normal bowel sounds, soft - Integumentary Integumentary: Present: normal, normal turgor - Psychiatric Psychiatric: Present: A&O x's 3, appropriate affect, intact judgment & insight - Labs CBC & Chem 7: 10/17/22 06:29 10/17/22 06:36 Labs: Abnormal Lab Results - Last 24 Hours (Table) 10/17/22 10/17/22 10/17/22 Range/Units 06:29 06:36 10:35 RBC 4.05 L (4.40-5.60) X 10*6/uL Hgb 10.7 L (13.0-17.0) g/dL Hct 33.0 L (39.6-50.0) % MCH 26.4 L (27.0-32.0) pg RDW 20.4 H (11.5-14.5) % MPV 9.1 L (9.5-12.2) fL Eosinophils # (Manual) 0.59 H (0.04-0.35) X 10*3/uL Basophils # (Manual) 0.22 H (0.00-0.10) X 10*3/uL Sodium 127 L (135-145) mmol/L Chloride 90 L (96-109) mmol/L BUN/Creatinine Ratio 21.38 H (12.00-20.00) Ratio Osmolality 270 L (280-301) mosm/kg AST 11 L (14-35) U/L Albumin 3.6 L (3.8-4.9) g/dL Globulin 3.4 H (1.6-3.3) g/dL Albumin/Globulin Ratio 1.06 L (1.60-3.17) g/dL Assessment and Plan (1) Hyponatremia Current Visit: Yes Status: Acute Priority: High Code(s): E87.1 - HYPO- OSMOLALITY AND HYPONATREMIA SNOMED Code(s): 28703728 (2) Fatigue Current Visit: No Status: Acute Code(s): R53.83 - OTHER FATIGUE SNOMED Code(s): 83368560 (3) Lymphoma Current Visit: No Status: Acute Priority: High Code(s): C85.90 - NON- HODGKIN LYMPHOMA, UNSPECIFIED, UNSPECIFIED SITE SNOMED Code(s): 561685235 Plan: Appreciate consults with nephrology and oncology. Follow recommended fluid restrictions by nephrology. Repeat labs in the morning. Continue to follow closely. Patient seen and evaluated by nurse practitioner, physician in agreement with plan
[2022-10-18 09:22] LABS: African American GFR (CKD) 107.2 (60.0-200.0); Anion Gap 9.6 mmol/L (10.00-18.00); BUN/Creat Ratio 26.44 Ratio (12.00-20.00); Blood Urea Nitrogen 23.8 mg/dL (9.0-27.0); Calcium 9.5 mg/dL (8.7-10.3); Carbon Dioxide 26.4 mmol/L (20.0-27.5); Magnesium 2.2 mg/dL (1.5-2.4); Non-African American GFR(CKD) 92.5 (60.0-200.0); Potassium 4.6 mmol/L (3.5-5.5)
--- NOTE | 2022-10-18 10:03 | P.PN ---
Subjective Patient is seen in follow-up for hyponatremia. Sodium level 128 today. No vomiting or diarrhea. Oral intake fair. Blood pressure on the lower side this morning. Vital signs are stable. General: Awake. No acute distress. HEENT: Head exam is unremarkable. LUNGS: Breath sounds decreased. HEART: Rate and Rhythm are regular. ABDOMEN: Soft, no distention. EXTREMITITES: No edema. Objective - Vital Signs Vital signs: Vital Signs Temp 97.6 F 10/18/22 04:18 Pulse 106 H 10/18/22 04:18 Resp 14 10/18/22 04:18 BP 99/61 10/18/22 04:18 Pulse Ox 97 10/18/22 04:18 FiO2 Intake & Output 10/17/22 10/18/22 10/18/22 18:59 06:59 18:59 Intake Total 600 480 Balance 600 480 Intake: Oral 600 480 Other: Voiding Method Toilet Toilet # Voids 4 - Labs CBC & Chem 7: 10/17/22 06:29 10/18/22 04:10 Labs: Abnormal Lab Results - Last 24 Hours (Table) 10/17/22 10/17/22 10/17/22 Range/Units 06:29 06:36 10:35 Eosinophils # (Manual) 0.59 H (0.04-0.35) X 10*3/uL Basophils # (Manual) 0.22 H (0.00-0.10) X 10*3/uL Sodium 127 L (135-145) mmol/L Chloride 90 L (96-109) mmol/L Anion Gap (10.00-18.00) mmol/L BUN/Creatinine Ratio 21.38 H (12.00-20.00) Ratio Glucose (70-110) mg/dL Osmolality 270 L (280-301) mosm/kg AST 11 L (14-35) U/L Albumin 3.6 L (3.8-4.9) g/dL Globulin 3.4 H (1.6-3.3) g/dL Albumin/Globulin Ratio 1.06 L (1.60-3.17) g/dL 10/18/22 Range/Units 04:10 Eosinophils # (Manual) (0.04-0.35) X 10*3/uL Basophils # (Manual) (0.00-0.10) X 10*3/uL Sodium 128 L (135-145) mmol/L Chloride 92 L (96-109) mmol/L Anion Gap 9.60 L (10.00-18.00) mmol/L BUN/Creatinine Ratio 26.44 H (12.00-20.00) Ratio Glucose 119 H (70-110) mg/dL Osmolality (280-301) mosm/kg AST (14-35) U/L Albumin (3.8-4.9) g/dL Globulin (1.6-3.3) g/dL Albumin/Globulin Ratio (1.60-3.17) g/dL Assessment and Plan Plan: Assessment: 1. Hypovolemic hyponatremia with component of poor solute intake and excessive fluid intake. Also concern for underlying SIADH from malignancy. Urine sodium 57 and urine osmolality 420. TSH normal. Sodium level 121 on admission - 128 today. TSH normal. Cortisol dated 10/08/2022 was within range. 2. Lymphoma. States last chemotherapy was about 2 weeks ago. Plan: Maintain fluid restriction. Increase sodium chloride tab to once daily. Check cortisol level. Discussed with patient in detail to follow 40 ounce fluid restriction per day u aliyah discharge along with increased protein intake. Repeat BMP and magnesium level to 3 days postdischarge. Follow up outpatient in 1 week.
[2022-10-18] MEDS: ALPRAZolam 0.25 MG TAB PO PRN ×2 (10:37→21:07)
[2022-10-18] MEDS: polyethylene glycoL 3350 17 GM POWD.PACK PO SCH (11:35)
[2022-10-18] MEDS: SODIUM CHLORIDE TAB 1 GM TAB PO SCH (11:35)
[2022-10-18] MEDS: MIRTAZAPINE 15 MG TAB PO SCH (21:07)
[2022-10-19] MEDS: HEPARIN SODIUM,PORCINE/PF 5,000 UNIT/0.5 ML SYRINGE SQ SCH ×3 (00:09→09:01)
[2022-10-19 04:45] VITALS: BP 115/69; PULSE 93; RESP 15; TEMP 97.1
--- NOTE | 2022-10-19 08:31 | P.DS ---
Providers Date of admission: 10/16/22 19:59 Attending physician: Rodo Larson Consults: 10/16/22 19:55 Consult Physician Stat Consulting Provider: Ran Pantoja Consult Reason/Comments: Hyponatremia Do you want consulting provider notified?: Yes Consult Physician Urgent Consulting Provider: Vince Wesley Consult Reason/Comments: Hyponatremia Do you want consulting provider notified?: Yes Primary care physician: Rodo Larson Hospital Course: The patient is admitted for hyponatremia related to hypovolemia with SIADH related to malignancy. We are slowly titrating his medication to adjust to make sure that he can be stable as an outpatient. 1500 mL fluid restriction with salt tablets daily. We will follow-up with his laboratories closely. The patient will be discharged once cleared by nephrology and his sodium is greater than 130 Patient Condition at Discharge: Fair Plan - Discharge Summary Discharge Rx Participant: No New Discharge Prescriptions: New Sodium Chloride Tab 1 gm PO DAILY #30 tab traMADol HCl [Ultram] 50 mg PO Q12H PRN #60 tab PRN Reason: Moderate Pain (Scale 4 To 6) Continue Sennosides [Senokot] 8.6 mg PO HS PRN PRN Reason: Constipation Cholecalciferol [Vitamin D3 (25 Mcg = 1000 Iu)] 25 mcg PO DAILY Pantoprazole Sodium [Protonix] 40 mg PO DAILY Ondansetron Odt [Zofran ODT] 4 mg PO Q4H PRN PRN Reason: Nausea And Vomiting Mirtazapine [Remeron] 30 mg PO HS allopurinoL [Zyloprim] 200 mg PO DAILY Acetaminophen [Tylenol Extra Strength] 500 - 1,000 mg PO Q6H PRN PRN Reason: Fever And/ Or Pain Zinc Gluconate [Zinc] 50 mg PO DAILY Ascorbic Acid [Vitamin C] 500 mg PO DAILY Nicotine 21Mg/24Hr Patch [Habitrol] 1 patch TRANSDERM DAILY PRN PRN Reason: SMOKING CESSATION Ferrous Sulfate [Feosol] 325 mg PO DAILY ALPRAZolam [Xanax] 0.25 mg PO BID PRN PRN Reason: Anxiety Discontinued Sodium Chloride Tab 1 gm PO Q48H Discharge Medication List ALPRAZolam [Xanax] 0.25 mg PO BID PRN 10/06/22 [History] Acetaminophen [Tylenol Extra Strength] 500 - 1,000 mg PO Q6H PRN 10/06/22 [History] Ascorbic Acid [Vitamin C] 500 mg PO DAILY 10/06/22 [History] Cholecalciferol [Vitamin D3 (25 Mcg = 1000 Iu)] 25 mcg PO DAILY 10/06/22 [History] Ferrous Sulfate [Feosol] 325 mg PO DAILY 10/06/22 [History] Mirtazapine [Remeron] 30 mg PO HS 10/06/22 [History] Nicotine 21Mg/24Hr Patch [Habitrol] 1 patch TRANSDERM DAILY PRN 10/06/22 [History] Ondansetron Odt [Zofran ODT] 4 mg PO Q4H PRN 10/06/22 [History] Pantoprazole Sodium [Protonix] 40 mg PO DAILY 10/06/22 [History] Sennosides [Senokot] 8.6 mg PO HS PRN 10/06/22 [History] Zinc Gluconate [Zinc] 50 mg PO DAILY 10/06/22 [History] allopurinoL [Zyloprim] 200 mg PO DAILY 10/06/22 [History] Sodium Chloride Tab 1 gm PO DAILY #30 tab 10/19/22 [Rx] traMADol HCl [Ultram] 50 mg PO Q12H PRN #60 tab 10/19/22 [Rx] Follow up Appointment(s)/Referral(s): Rodo Larson MD [Primary Care Provider] - 1-2 days Discharge Disposition: HOME SELF-CARE
[2022-10-19] MEDS: NON FORMULARY DRUG (Zinc Gluconate 50 MG Tab) PO SCH (08:53)
[2022-10-19] MEDS: allopurinoL 100 MG TAB PO SCH (08:55)
[2022-10-19] MEDS: SODIUM CHLORIDE TAB 1 GM TAB PO SCH (08:55)
[2022-10-19] MEDS: CHOLECALCIFEROL 25 MCG (1000 IU) TABLET PO SCH (08:55)
[2022-10-19] MEDS: polyethylene glycoL 3350 17 GM POWD.PACK PO SCH (08:55)
[2022-10-19] MEDS: ASCORBIC ACID 500 MG TAB PO SCH (08:55)
[2022-10-19] MEDS: PANTOPRAZOLE 40 MG TABLET PO SCH (08:55)
[2022-10-19] MEDS: FERROUS SULFATE 325 MG TAB PO SCH (08:55)
[2022-10-19] MEDS: traMADol 50 MG TAB PO PRN (08:57)
[2022-10-19 10:53] LABS: African American GFR (CKD) 119.5 (60.0-200.0); Albumin 3.4 g/dL (3.8-4.9); Albumin/Globulin Ratio 1.15 (1.60-3.17); Anion Gap 11.8 mmol/L (10.00-18.00); BUN/Creat Ratio 27.93 Ratio (12.00-20.00); Blood Urea Nitrogen 19.3 mg/dL (9.0-27.0); Calcium 9.3 mg/dL (8.7-10.3); Carbon Dioxide 23.2 mmol/L (20.0-27.5); Non-African American GFR(CKD) 103.1 (60.0-200.0); Potassium 4.5 mmol/L (3.5-5.5); Total Bilirubin 0.4 mg/dL (0.30-1.20); Total Protein 6.4 g/dL (6.2-8.2)
--- NOTE | 2022-10-19 11:19 | P.PN ---
Subjective Patient is seen in follow-up for hyponatremia. Sodium level 130 today. No vomiting or diarrhea. Oral intake fair. Blood pressure stable. No active complaints. Vital signs are stable. General: Awake. No acute distress. HEENT: Head exam is unremarkable. LUNGS: Breath sounds decreased. HEART: Rate and Rhythm are regular. ABDOMEN: Soft, no distention. EXTREMITITES: No edema. Objective - Vital Signs Vital signs: Vital Signs Temp 97.1 F L 10/19/22 04:02 Pulse 93 10/19/22 04:02 Resp 15 10/19/22 04:02 BP 115/69 10/19/22 04:02 Pulse Ox 98 10/19/22 04:02 FiO2 Intake & Output 10/18/22 10/19/22 10/19/22 18:59 06:59 18:59 Intake Total 960 420 598 Balance 960 420 598 Intake: Oral 960 420 598 Other: Voiding Method Toilet # Voids 2 1 - Labs CBC & Chem 7: 10/17/22 06:29 10/19/22 05:21 Labs: Abnormal Lab Results - Last 24 Hours (Table) 10/19/22 Range/Units 05:21 Sodium 130 L (135-145) mmol/L Chloride 95 L (96-109) mmol/L BUN/Creatinine Ratio 27.93 H (12.00-20.00) Ratio Glucose 117 H (70-110) mg/dL AST 13 L (14-35) U/L Albumin 3.4 L (3.8-4.9) g/dL Albumin/Globulin Ratio 1.15 L (1.60-3.17) g/dL Assessment and Plan Plan: Assessment: 1. Hypovolemic hyponatremia with component of poor solute intake and excessive fluid intake. Also concern for underlying SIADH from malignancy. Urine sodium 57 and urine osmolality 420. TSH normal. Sodium level 121 on admission - 130 today. TSH normal. Cortisol dated 10/08/2022 was within range. This admission it was 4.1 which is a little and lower side. 2. Lymphoma. States last chemotherapy was about 2 weeks ago. Plan: Maintain fluid restriction. Maintain sodium chloride tablet. Discussed with patient in detail to follow 40 ounce fluid restriction per day upon discharge along with increased protein intake. Repeat BMP and magnesium level 2 to 3 days postdischarge. Follow up outpatient in 1 week. If has persistent hyponatremia, then we'll also need to see endocrine for workup for adrenal sufficiency.
== END 2022-10-19 11:57 | disposition home or self-care (01) | DRG 644 ==
LOC: EC 16:29 → 5NMEDONC 19:59
PROVIDERS: ADMIT Family Medicine; ATTEND Family Medicine
DX: E22.2 Syndrome of inappropriate secretion of antidiuretic hormone (principal); C81.90 Hodgkin lymphoma, unspecified, unspecified site; M48.56XA Collapsed vertebra, not elsewhere classified, lumbar region, initial encounter for fracture; B02.9 Zoster without complications; Z20.822 Contact with and (suspected) exposure to COVID-19; C88.0 Waldenstrom macroglobulinemia; D47.2 Monoclonal gammopathy; D64.9 Anemia, unspecified; E86.0 Dehydration; E86.1 Hypovolemia; F17.210 Nicotine dependence, cigarettes, uncomplicated; Z79.899 Other long term (current) drug therapy; Z92.21 Personal history of antineoplastic chemotherapy; Z80.7 Family history of other malignant neoplasms of lymphoid, hematopoietic and related tissues
CPT/HCPCS: 36415; 71045; 80048; 80053; 81003; 82330; 82533; 83605; 83735; 83930; 83935; 84100; 84300; 84443; 84484; 85025; 85610; 85730; 87502; 87635; 93005; 96360; 96361; 99285

== ENCOUNTER → 2022-10-20 | Outpatient (CLI) | payer OTHER ==
[2022-10-20 22:26] LABS: Basophils # (A) 0.13 X 10*3/uL (0.00-0.10); Basophils % (A) 1.6 %; Eosinophils # (A) 0.88 X 10*3/uL (0.04-0.35); Eosinophils % (A) 10.9 %; HCT 30.2 % (39.6-50.0); HGB 9.8 g/dL (13.0-17.0); Immature Grans, Automated 0.5 %; Lymphocytes # (A) 1.15 X 10*3/uL (0.90-5.00); Lymphocytes % (A) 14.3 %; MCH 26.6 pg (27.0-32.0); MCHC 32.5 g/dL (32.0-37.0); MCV 82.1 fL (80.0-97.0); Mean Platelet Volume 9.1 fL (9.5-12.2); Monocytes # (A) 1.27 X 10*3/uL (0.20-1.00); Monocytes % (A) 15.8 %; NRBC Per 100 WBC 0 /100 WBCS (0.0-0.0); Neutrophils # (A) 4.58 X 10*3/uL (1.80-7.70); Neutrophils % (A) 56.9 %; Platelet Count 303 X 10*3/uL (140-440); RBC 3.68 X 10*6/uL (4.40-5.60); RDW 19.7 % (11.5-14.5); WBC 8.05 X 10*3/uL (4.50-10.00)
[2022-10-21 00:42] LABS: African American GFR (CKD) 118.9 (60.0-200.0); Anion Gap 9.2 mmol/L (10.00-18.00); BUN/Creat Ratio 21.86 Ratio (12.00-20.00); Blood Urea Nitrogen 15.3 mg/dL (9.0-27.0); Calcium 9.2 mg/dL (8.7-10.3); Carbon Dioxide 25.8 mmol/L (20.0-27.5); Non-African American GFR(CKD) 102.6 (60.0-200.0); Phosphorus 4.2 mg/dL (2.4-5.1); Potassium 4.3 mmol/L (3.5-5.5); Protein, Total 6.4 g/dL (6.2-8.2); Uric Acid 3.4 mg/dL (3.7-8.7)
[2022-10-22 11:35] LABS: Free Kappa Lt Chain Qnt, Serum 10.59 mg/dL (0.33-1.94); Free Lambda Lt Chain Qnt, Seru 0.92 mg/dL (0.57-2.63)
== END | disposition home or self-care (01) ==
LOC: LABWHC1 15:55
PROVIDERS: ATTEND Internal Medicine Hematology & Oncology
DX: C85.98 Non-Hodgkin lymphoma, unspecified, lymph nodes of multiple sites (principal); F41.9 Anxiety disorder, unspecified; F32.A Depression, unspecified
CPT/HCPCS: 36415; 80048; 83883; 84100; 84165; 84550; 85025; 85810

== ENCOUNTER → 2022-10-25 | Outpatient (CLI) | payer OTHER ==
[2022-10-25 13:21] LABS: ALT 17 U/L (4-49); AST 18 U/L (17-59); African American GFR (CKD) >90 (>60 ml/min/1.73 sqM); Albumin 3.9 g/dL (3.5-5.0); Albumin/Globulin Ratio 1.2; Alkaline Phosphatase 90 U/L (38-126); Anion Gap 7 mmol/L; Blood Urea Nitrogen 21 mg/dL (9-20); Carbon Dioxide 28 mmol/L (22-30); Chloride 97 mmol/L (98-107); Globulin 3.2 g/dL; Glucose 171 mg/dL (74-99); Non-African American GFR(CKD) >90 (>60 ml/min/1.73 sqM); Potassium 4.5 mmol/L (3.5-5.1); Sodium 132 mmol/L (137-145); Total Bilirubin 0.5 mg/dL (0.2-1.3); Total Protein 7.1 g/dL (6.3-8.2)
== END | disposition home or self-care (01) ==
LOC: LABWHC1 12:33
PROVIDERS: ATTEND Family Medicine
DX: E87.1 Hypo-osmolality and hyponatremia (principal); C85.80 Other specified types of non-Hodgkin lymphoma, unspecified site; V67.9XXA Unspecified occupant of heavy transport vehicle injured in collision with fixed or stationary object in traffic accident, initial encounter
CPT/HCPCS: 36415; 80053

== ENCOUNTER → 2022-11-11 | Outpatient (CLI) | payer OTHER ==
[2022-11-11 10:34] LABS: African American GFR (CKD) >90 (>60 ml/min/1.73 sqM); Blood Urea Nitrogen 21 mg/dL (9-20); Non-African American GFR(CKD) >90 (>60 ml/min/1.73 sqM)
--- NOTE | 2022-11-11 12:01 | CT ---
EXAMINATION TYPE: CT ChestAbdPelvis w con CT DLP: 1300 mGycm, Automated exposure control for dose reduction was used. 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 Two-dimensional cor onal and sagittal reconstructions were obtained. Contrast used:100 mL of Isovue 300 with IV Contrast, Oral contrast used: with Oral Contrast Findings: CHEST: LUNGS/ PLEURA: Mild paraseptal emphysema changes in the lung apices. No evidence of focal consolidati on, pneumothorax or pleural effusion.7 AIRWAY: Patent and unremarkable. HEART: Size within normal limits. MEDIASTINUM: No gross evidence of adenopathy. Small hiatal hernia. VASCULATURE: No aortic aneurysm. MUSCULOSKELETAL: No acute osseous abnormalities. SOFT TISSUES/LYMPH NODES: Mild gynecomastia changes. LOWER NECK: No significant findings. ABDOMEN: ABDOMEN LIVER: Unremarkable GALLBLADDER AND BILE DUCTS: Unremarkable. PANCREAS: Unremarkable. SPLEEN: Unremarkable. ADRENAL GLANDS: Unremarkable. KIDNEYS AND URETERS: No evidence of hydronephrosis or renal calculus. The ureters are unremarkable. PELVIS BLADDER: Unremarkable REPRODUCTIVE: Unremarkable. ABDOMEN & PELVIS STOMACH AND BOWEL: No evidence of bowel obstruction. Large stool burden throughout the colon and rect um. PERITONEUM: No evidence of pneumoperitoneum or free fluid. VASCULATURE: No evidence of aortic aneurysm. Atherosclerosis of the arterial vasculature. MUSCULOSKELETAL: No acute osseous abnormalities, L5 superior endplate deformity. No significant retro pulsion. Mild multilevel disc degeneration changes. LYMPH NODES: There is conglomerate soft tissue likely representing lymphadenopathy around the aorta i n the retroperitoneum. This extends from the left adrenal gland down along the aorta and inferior nataly a cava towards the aortic bifurcation. SOFT TISSUE/ABDOMINAL WALL: Unremarkable IMPRESSION: Conglomerate retroperitoneal lymphadenopathy extending along the aorta and inferior vena cava. Attent ion on follow-up PET/CT and comparisons with priors at outside institutions would be of benefit.
== END | disposition home or self-care (01) ==
LOC: RADCTMAIN 09:25
PROVIDERS: ATTEND Internal Medicine Hematology & Oncology
DX: C85.98 Non-Hodgkin lymphoma, unspecified, lymph nodes of multiple sites (principal); R59.0 Localized enlarged lymph nodes
CPT/HCPCS: 82565; 84520; 71260; 74177; 36415; Q9967 ×2

== ENCOUNTER → 2023-03-01 | Outpatient (CLI) | payer OTHER ==
[2023-03-01 12:36] LABS: African American GFR (CKD) >90 (>60 ml/min/1.73 sqM); Blood Urea Nitrogen 21 mg/dL (9-20); Non-African American GFR(CKD) >90 (>60 ml/min/1.73 sqM)
--- NOTE | 2023-03-01 14:25 | CT ---
EXAMINATION TYPE: CT ChestAbdPelvis w con CT DLP: 865.0 mGycm, Automated exposure control for dose reduction was used. DATE OF EXAM: 03/01/2023 2:12 PM COMPARISON: CT chest abdomen pelvis 11/11/2022 CLINICAL INDICATION:Male, 62 years old with history of C85.98 lymphoma; , Lymphoma Technique: Multiple axial images of the chest, abdomen, and pelvis were obtained. Two-dimensional cor onal and sagittal reconstructions were obtained. Contrast used:100 mL of Isovue 300 with IV Contrast, Oral contrast used: with Oral Contrast Findings: CHEST: LUNGS/ PLEURA: Mild paraseptal emphysema changes in the lung apices. No evidence of focal consolidati on, pneumothorax or pleural effusion. No suspicious pulmonary masses. AIRWAY: Patent and unremarkable. HEART: Size within normal limits. No pericardial effusion. Mild coronary arterial calcifications. MEDIASTINUM: No gross evidence of adenopathy. Small hiatal hernia. VASCULATURE: No aortic aneurysm. MUSCULOSKELETAL: No acute osseous abnormalities. No aggressive osseous lesion. SOFT TISSUES/LYMPH NODES: Mild gynecomastia changes. LOWER NECK: No significant findings. ABDOMEN: ABDOMEN LIVER: Unremarkable GALLBLADDER AND BILE DUCTS: Unremarkable. PANCREAS: Unremarkable. SPLEEN: Unremarkable. ADRENAL GLANDS: Unremarkable. KIDNEYS AND URETERS: No evidence of hydronephrosis or renal calculus. The kidneys enhance symmetrical ly without suspicious focal lesion. Retroaortic left renal vein. PELVIS BLADDER: Unremarkable REPRODUCTIVE: Coarse calcifications of the prostate gland are identified. ABDOMEN & PELVIS STOMACH AND BOWEL: No focal wall thickening or surrounding inflammatory changes. Distal colonic diver ticulosis without evidence for acute diverticulitis. Enteric contrast reaches the transverse colon. N o evidence of bowel obstruction. PERITONEUM: No evidence of pneumoperitoneum or free fluid. VASCULATURE: No evidence of aortic aneurysm. Atherosclerosis of the arterial vasculature. MUSCULOSKELETAL: No acute osseous abnormalities, L5 superior endplate deformity redemonstrated. No si gnificant retropulsion. Mild multilevel disc degeneration changes. LYMPH NODES: There is mild decrease in conglomerate soft tissue likely representing lymphadenopathy a round the aorta in the retroperitoneum. This extends from the left adrenal gland down along the aorta and inferior vena cava towards the aortic bifurcation. This demonstrates a maximum thickness of 1.2 cm, previously 1.6 cm. SOFT TISSUE/ABDOMINAL WALL: Unremarkable IMPRESSION: 1. Mild decrease in conglomerate retroperitoneal lymphadenopathy from prior examination indicating p ositive treatment response. No suspicious adenopathy within the chest. 2. Colonic diverticulosis without evidence for acute diverticulitis.
== END | disposition home or self-care (01) ==
LOC: RADCTMAIN 11:52
PROVIDERS: ATTEND Internal Medicine Hematology & Oncology
DX: C85.98 Non-Hodgkin lymphoma, unspecified, lymph nodes of multiple sites (principal); K57.30 Diverticulosis of large intestine without perforation or abscess without bleeding; F41.9 Anxiety disorder, unspecified; F32.A Depression, unspecified
CPT/HCPCS: 82565; 84520; 71260; 74177; 36415; Q9967

== ENCOUNTER → 2023-12-27 | Outpatient (CLI) | payer OTHER ==
[2023-12-27 12:08] LABS: African American GFR (CKD) >90 (>60 ml/min/1.73 sqM); Blood Urea Nitrogen 17 mg/dL (9-20); Non-African American GFR(CKD) >90 (>60 ml/min/1.73 sqM)
--- NOTE | 2023-12-27 14:53 | CT ---
EXAMINATION TYPE: CT ChestAbdPelvis w con DATE OF EXAM: 12/27/2023 INDICATION: lymphoma COMPARISON: 03/01/2023 CT DLP: 992.2 mGycm CONTRAST: Performed with Oral Contrast and with IV Contrast, patient injected with 100 mL of Isovue 300. TECHNIQUE: Axial images at 5 mm thick sections. Reconstructed images in the coronal plane. Delayed images through the kidneys. FINDINGS: CT CHEST: Portion of the thyroid visualized is normal. There is some mild emphysematous change appears to be within the lingula. Lungs otherwise appear cristina r No suspicious lung nodules or focal infiltrates are present. No enlarged mediastinal or hilar adenopathy is evident. The ascending aorta diameter at the level of the main pulmonary artery is 3.6 cm. The main pulmonary artery diameter at the bifurcation is 2.4 cm. Coronary artery calcification is noted. CT ABDOMEN: Liver: Mild fatty infiltration of the liver. Spleen: Normal Pancreas: Normal Adrenal glands: The adrenal glands are normal. Gallbladder: Normal Kidneys: No masses are evident. No hydronephrosis is present. No cysts are present. Delayed images were obtained through the kidneys, which remain unremarkable. Aorta: Vascular calcification is within the aorta. Inferior vena cava: Normal. CT PELVIS: Loops of bowel within the abdomen and pelvis are normal. There are loops of bowel which are incom pletely distended or lack oral contrast limiting their evaluation. Appendix: Not identified. No dilated tubular structure or inflammatory changes evident. Urinary bladder: Normal. Genitourinary structures: Prostate is prominent. Calcification is present. Osseous structures: No suspicious lytic or sclerotic lesions. Lymphadenopathy: No suspicious enlarged lymph nodes are evident. Para-aortic soft tissue remains pres ent near the level of the renal arteries. Previous maximum depth was 1.2 cm with a current measuremen t approximately 0.9 cm. This is slightly diminished over the interval. IMPRESSION: 1. No suspicious enlarged adenopathy to suggest recurrent or metastatic lymphoma.
== END | disposition home or self-care (01) ==
LOC: RADCTMAIN 11:25
PROVIDERS: ATTEND Internal Medicine Hematology & Oncology
DX: C85.98 Non-Hodgkin lymphoma, unspecified, lymph nodes of multiple sites (principal); F32.A Depression, unspecified; F41.9 Anxiety disorder, unspecified
CPT/HCPCS: 82565; 84520; 71260; 74177; 36415; Q9967